=== PATIENT | female | born 1960 | race Asian ===

== ENCOUNTER → 2017-04-18 | Outpatient (CLI) | payer BC ==
[2017-04-18 12:44] LABS: BASOPHILS % 0.2 % (0.0-2.0); HEMATOCRIT. 43.8 % (36.0-48.0); HEMOGLOBIN. 14.4 g/dL (12.0-16.0); LYMPHOCYTES % 9.8 % (20.0-50.0); MEAN CORPUSCULAR HEMOGLOBIN 28.3 pg (28.0-32.0); MEAN CORPUSCULAR VOLUME 86.4 fL (81.0-99.0); MEAN PLATELET VOLUME 8.1 fl (7.4-10.4); MONOCYTES % 3.9 % (2.0-8.0); NEUTROPHILS % 86.1 % (40.0-76.0); PLATELET 347 x1000/uL (130-400); RED BLOOD CELL COUNT 5.07 mill/uL (4.2-5.4); RED CELL DISTRIBUTION WIDTH 13.3 % (11.6-14.6)
[2017-04-18 13:14] LABS: CARBON DIOXIDE 27 mEq/L (21-32); CHLORIDE 105 mEq/L (98-107); HDL CHOLESTEROL 111 mg/dL (40-59); LDL CHOLESTEROL 106 mg/dL (5-100); T4 FREE 1.12 ng/dL (0.76-1.46)
[2017-04-18 13:33] LABS: VITAMIN B12 SERUM 929 pg/mL (211-911)
[2017-04-18 13:36] LABS: FOLIC ACID (FOLATE) SERUM > 20.00 ng/mL (>5.38)
[2017-04-19 10:07] LABS: VITAMIN D 25-OH 32.5 ng/mL (30.0-100.0)
[2017-04-19 19:09] LABS: ANTI-NUCLEAR ANTIBODIES DIRECT Negative (Negative)
== END | disposition home or self-care (01) ==
LOC: LAB 12:05
PROVIDERS: ATTEND Internal Medicine Endocrinology, Diabetes & Metabolism
DX: N60.01 Solitary cyst of right breast (principal); N64.4 Mastodynia; E78.00 Pure hypercholesterolemia, unspecified; R73.9 Hyperglycemia, unspecified; R51 Headache
CPT/HCPCS: 36415; 76641; 80053; 80061; 82306; 82607; 82746; 83036; 83921; 84439; 84443; 85025; 85651; 86038; 86430

== ENCOUNTER → 2017-06-13 | Outpatient (CLI) | payer BC ==
[~2017-06-13] MED LIST: REGADENOSON 0.4 MG/5 ML IV ONE
== END | disposition home or self-care (01) ==
LOC: NM 07:01
PROVIDERS: ATTEND Specialist
DX: R07.89 Other chest pain (principal); R06.02 Shortness of breath
CPT/HCPCS: 78452; 93017; 93306; A9500; J2785

== ENCOUNTER → 2017-06-20 | Outpatient (CLI) | payer BC ==
[2017-06-20 12:53] LABS: CARBON DIOXIDE 30 mEq/L (21-32); CHLORIDE 109 mEq/L (98-107)
[2017-06-21 13:10] LABS: CANCER ANTIGEN 125 5.3 U/mL (0.0-38.1)
== END | disposition home or self-care (01) ==
LOC: LAB 11:32
PROVIDERS: ATTEND Obstetrics & Gynecology Obstetrics
DX: E78.4 Other hyperlipidemia (principal)
CPT/HCPCS: 36415; 80053; 82378; 86304; 86305

== ENCOUNTER → 2017-06-21 | Outpatient (CLI) | payer BC | END | disposition home or self-care (01) | LOC: RAD 15:19 | PROVIDERS: ATTEND Specialist | DX: R07.9 Chest pain, unspecified (principal) | CPT/HCPCS: 71020 ==

== ENCOUNTER → 2017-07-04 | Outpatient (CLI) | payer BC ==
[~2017-07-04] MED LIST changes: +BARIUM SULFATE 450ML ORAL SUSP ONE; +IOHEXOL-300 100 ML BOTTLE ONE; -REGADENOSON 0.4 MG/5 ML IV ONE; +SODIUM CHLORIDE 0.9% 10ML VIAL ONE
== END | disposition home or self-care (01) ==
LOC: CT 07:56
PROVIDERS: ATTEND Obstetrics & Gynecology Obstetrics
DX: I51.7 Cardiomegaly (principal); M43.16 Spondylolisthesis, lumbar region
CPT/HCPCS: 74177; A4216; Q9967

== ENCOUNTER → 2017-07-27 | Outpatient (CLI) | payer BC | END | disposition home or self-care (01) | LOC: US 09:38 | PROVIDERS: ATTEND Obstetrics & Gynecology Obstetrics | DX: N83.292 Other ovarian cyst, left side (principal); D25.9 Leiomyoma of uterus, unspecified; D39.0 Neoplasm of uncertain behavior of uterus | CPT/HCPCS: 76830; 76856 ==

== ENCOUNTER 2017-08-08 05:38 | Day surgery (SDC) | payer BC ==
[~2017-08-08] VITALS: Ht 151.1 cm; Wt 68.0 kg
[2017-08-08 06:27] LABS: BASOPHILS % 1.5 % (0.0-2.0); EOSINOPHILS % 4.3 % (0.0-5.0); HEMATOCRIT. 41.7 % (36.0-48.0); LYMPHOCYTES % 36.8 % (20.0-50.0); MEAN CORPUSCULAR HEMOGLOBIN 29.1 pg (28.0-32.0); NEUTROPHILS % 50.4 % (40.0-76.0); PLATELET 293 x1000/uL (130-400); RED CELL DISTRIBUTION WIDTH 13.7 % (11.6-14.6)
[2017-08-08 06:32] LABS: CLARITY URINE CLEAR (CLEAR); COLOR URINE YELLOW (YELLOW); GLUCOSE URINE NEGATIVE (NEGATIVE); KETONES URINE NEGATIVE (NEGATIVE); LEUKOCYTE ESTERASE URINE NEGATIVE (NEGATIVE); NITRITE URINE NEGATIVE (NEGATIVE); OCCULT BLOOD URINE NEGATIVE (NEGATIVE); PH URINE 6.5 (4.5-8.0); PROTEIN URINE NEGATIVE (NEGATIVE); SPECIFIC GRAVITY URINE 1.009 (1.005-1.030); UROBILINOGEN URINE 0.2 E.U./dL (0.2-1.0)
[2017-08-08 06:38] LABS: CARBON DIOXIDE 29 mEq/L (21-32); CHLORIDE 108 mEq/L (98-107)
[2017-08-08] MEDS ORDERED: LACTATED RINGERS 1,000 ML IV SCH (06:45)
[2017-08-08 06:48] LABS: UCG SCREEN NEGATIVE
[2017-08-08] MEDS ORDERED: ONDANSETRON HCL 4MG/2ML VIAL ONE (07:36)
[2017-08-08] MEDS ORDERED: LIDOCAINE HCL 1% 20ML VIAL (Pyxis) INJ ONE (07:36)
[2017-08-08] MEDS ORDERED: METOCLOPRAMIDE HCL 10MG/2ML VIAL ONE (07:36)
[2017-08-08] MEDS ORDERED: PROPOFOL 200MG/20ML VIAL IV ONE (07:36)
[2017-08-08] MEDS ORDERED: FENTANYL CITRATE/PF 50MCG/ML 2ML VIAL ONE (07:37)
[2017-08-08] MEDS ORDERED: CEFAZOLIN SODIUM 1000MG/VIAL ONE (07:51)
[2017-08-08] MEDS ORDERED: LABETALOL HCL 20MG/4ML CARPUJECT IV PRN (08:00)
[2017-08-08] MEDS ORDERED: ONDANSETRON HCL 4MG/2ML VIAL IV PRN (08:00)
[2017-08-08] MEDS ORDERED: MEPERIDINE HCL/PF 25MG/ML CPJ IV PRN (08:00)
[2017-08-08] MEDS ORDERED: HYDROMORPHONE HCL/PF 2MG/ML CPJ IV PRN (08:00)
[2017-08-08] MEDS ORDERED: ACETAMINOPHEN 325MG TABLET PO PRN (08:30)
== END 2017-08-08 10:15 ==
LOC: OR 05:38
PROVIDERS: ATTEND Obstetrics & Gynecology Obstetrics
DX: N85.8 Other specified noninflammatory disorders of uterus (principal); Z91.013 Allergy to seafood; Z91.09 Other allergy status, other than to drugs and biological substances; Z98.890 Other specified postprocedural states
CPT/HCPCS: 36415; 58558; 80048; 81003; 81025; 85025; 88305; 93005; J0690; J2405; J2765; J3010; J3490; J7120; J2704

== ENCOUNTER → 2017-08-21 | Outpatient (CLI) | payer BC | END | disposition home or self-care (01) | LOC: MRI 07:57 | PROVIDERS: ATTEND Psychiatry & Neurology Neurology | DX: R51 Headache (principal); R26.81 Unsteadiness on feet; Z86.73 Personal history of transient ischemic attack (TIA), and cerebral infarction without residual deficits | CPT/HCPCS: 70544; 70553 ==

== ENCOUNTER → 2017-09-07 | Outpatient (CLI) | payer BC ==
[2017-09-07 09:49] LABS: BASOPHILS % 0.8 % (0.0-2.0); EOSINOPHILS % 5.3 % (0.0-5.0); HEMATOCRIT. 41.8 % (36.0-48.0); HEMOGLOBIN. 14.1 g/dL (12.0-16.0); LYMPHOCYTES % 32.2 % (20.0-50.0); MEAN CORPUSCULAR HEMOGLOBIN 29.2 pg (28.0-32.0); MEAN CORPUSCULAR VOLUME 86.5 fL (81.0-99.0); MEAN PLATELET VOLUME 7.9 fl (7.4-10.4); NEUTROPHILS % 54.7 % (40.0-76.0); PLATELET 289 x1000/uL (130-400); RED BLOOD CELL COUNT 4.84 mill/uL (4.2-5.4); RED CELL DISTRIBUTION WIDTH 13.8 % (11.6-14.6)
[2017-09-07 11:11] LABS: CARBON DIOXIDE 26 mEq/L (21-32); CHLORIDE 108 mEq/L (98-107); HDL CHOLESTEROL 88 mg/dL (40-59); LDL CHOLESTEROL 81 mg/dL (5-100); T4 FREE 1.09 ng/dL (0.76-1.46)
== END | disposition home or self-care (01) ==
LOC: LAB 09:19
PROVIDERS: ATTEND Internal Medicine Endocrinology, Diabetes & Metabolism
DX: E78.00 Pure hypercholesterolemia, unspecified (principal); E55.9 Vitamin D deficiency, unspecified; E05.80 Other thyrotoxicosis without thyrotoxic crisis or storm
CPT/HCPCS: 36415; 80053; 80061; 82306; 83520; 84439; 84443; 84481; 85025

== ENCOUNTER → 2017-12-24 | Outpatient (CLI) | payer BC ==
[2017-12-24 10:26] LABS: BASOPHILS % 1.4 % (0.0-2.0); EOSINOPHILS % 4.2 % (0.0-5.0); HEMATOCRIT. 45.6 % (36.0-48.0); HEMOGLOBIN. 14.8 g/dL (12.0-16.0); LYMPHOCYTES % 27.3 % (20.0-50.0); MEAN CORPUSCULAR HEMOGLOBIN 28.1 pg (28.0-32.0); MEAN CORPUSCULAR VOLUME 86.5 fL (81.0-99.0); MEAN PLATELET VOLUME 8.1 fl (7.4-10.4); MONOCYTES % 6.2 % (2.0-8.0); NEUTROPHILS % 60.9 % (40.0-76.0); PLATELET 357 x1000/uL (130-400); RED BLOOD CELL COUNT 5.27 mill/uL (4.2-5.4); RED CELL DISTRIBUTION WIDTH 13.8 % (11.6-14.6)
[2017-12-24 10:43] LABS: CHLORIDE 103 mEq/L (98-107)
[2017-12-24 10:59] LABS: HDL CHOLESTEROL 97 mg/dL (40-59); LDL CHOLESTEROL 92 mg/dL (5-100); T4 FREE 1.03 ng/dL (0.76-1.46)
== END | disposition home or self-care (01) ==
LOC: LAB 09:44
PROVIDERS: ATTEND Internal Medicine Endocrinology, Diabetes & Metabolism
DX: E78.00 Pure hypercholesterolemia, unspecified (principal); E03.9 Hypothyroidism, unspecified; E55.9 Vitamin D deficiency, unspecified
CPT/HCPCS: 36415; 80053; 80061; 82306; 83036; 84439; 84443; 84481; 85025

== ENCOUNTER → 2018-02-18 | Outpatient (CLI) | payer BC ==
[2018-02-18 10:58] LABS: BASOPHILS % 0.6 % (0.0-2.0); EOSINOPHILS % 3.3 % (0.0-5.0); HEMOGLOBIN. 14.6 g/dL (12.0-16.0); LYMPHOCYTES % 30.9 % (20.0-50.0); MEAN CORPUSCULAR HEMOGLOBIN 29.3 pg (28.0-32.0); MEAN CORPUSCULAR VOLUME 86.7 fL (81.0-99.0); MEAN PLATELET VOLUME 8.4 fl (7.4-10.4); NEUTROPHILS % 59.2 % (40.0-76.0); PLATELET 322 x1000/uL (130-400); RED BLOOD CELL COUNT 4.96 mill/uL (4.2-5.4); RED CELL DISTRIBUTION WIDTH 14.1 % (11.6-14.6)
[2018-02-18 11:06] LABS: CHLORIDE 106 mEq/L (98-107)
[2018-02-18 11:14] LABS: HDL CHOLESTEROL 94 mg/dL (40-59); LDL CHOLESTEROL 84 mg/dL (5-100)
[2018-02-18 11:15] LABS: T4 FREE 1.03 ng/dL (0.76-1.46)
[2018-02-19 09:11] LABS: RF PROFILE < 10.0 IU/mL (0.0-13.9); VITAMIN D 25-OH 34.7 ng/mL (30.0-100.0)
[2018-02-20 09:09] LABS: ANTI-NUCLEAR ANTIBODIES DIRECT Negative (Negative)
[2018-02-21 10:09] LABS: CCP IgG/IgA PROFILE 7 units (0-19); METHYLMALONIC ACID 167 nmol/L (0-378)
== END | disposition home or self-care (01) ==
LOC: LAB 10:11
PROVIDERS: ATTEND Internal Medicine Endocrinology, Diabetes & Metabolism
DX: E05.90 Thyrotoxicosis, unspecified without thyrotoxic crisis or storm (principal); R73.9 Hyperglycemia, unspecified; E78.00 Pure hypercholesterolemia, unspecified; R42 Dizziness and giddiness; E55.9 Vitamin D deficiency, unspecified
CPT/HCPCS: 36415; 80053; 80061; 82306; 83036; 83921; 84439; 84443; 84481; 85025; 85651; 86038; 86200; 86431

== ENCOUNTER → 2018-02-26 | Outpatient (CLI) | payer BC | END | disposition home or self-care (01) | LOC: MAMMO 07:44 | PROVIDERS: ATTEND Internal Medicine Endocrinology, Diabetes & Metabolism | DX: Z12.31 Encounter for screening mammogram for malignant neoplasm of breast (principal) | CPT/HCPCS: 77067 ==

== ENCOUNTER → 2018-07-19 | Outpatient (CLI) | payer BC ==
[2018-07-19 11:28] LABS: BASOPHILS % 0.1 % (0.0-2.0); EOSINOPHILS % 3.2 % (0.0-5.0); HEMATOCRIT. 43.4 % (36.0-48.0); HEMOGLOBIN. 14.7 g/dL (12.0-16.0); LYMPHOCYTES % 30.4 % (20.0-50.0); MEAN CORPUSCULAR HEMOGLOBIN 29.7 pg (28.0-32.0); MEAN CORPUSCULAR VOLUME 87.4 fL (81.0-99.0); MEAN PLATELET VOLUME 8.4 fl (7.4-10.4); MONOCYTES % 6.5 % (2.0-8.0); NEUTROPHILS % 59.8 % (40.0-76.0); PLATELET 283 x1000/uL (130-400); RED BLOOD CELL COUNT 4.96 mill/uL (4.2-5.4); RED CELL DISTRIBUTION WIDTH 13.6 % (11.6-14.6)
[2018-07-19 11:45] LABS: CHLORIDE 106 mEq/L (98-107)
[2018-07-19 11:52] LABS: LDL CHOLESTEROL 81 mg/dL (5-100)
[2018-07-19 11:53] LABS: HDL CHOLESTEROL 88 mg/dL (40-59)
[2018-07-19 11:54] LABS: T4 FREE 0.98 ng/dL (0.76-1.46)
== END | disposition home or self-care (01) ==
LOC: LAB 10:39
PROVIDERS: ATTEND Internal Medicine Endocrinology, Diabetes & Metabolism
DX: E03.9 Hypothyroidism, unspecified (principal); E78.00 Pure hypercholesterolemia, unspecified; E55.9 Vitamin D deficiency, unspecified; R73.9 Hyperglycemia, unspecified
CPT/HCPCS: 36415; 80053; 80061; 82306; 83036; 84439; 84443; 84481; 85025

== ENCOUNTER → 2018-11-11 | Outpatient (CLI) | payer BC ==
[2018-11-11 11:17] LABS: CHLORIDE 107 mEq/L (98-107)
[2018-11-11 11:23] LABS: BASOPHILS % 1.2 % (0.0-2.0); EOSINOPHILS % 2.6 % (0.0-5.0); HEMATOCRIT. 41.5 % (36.0-48.0); HEMOGLOBIN. 13.9 g/dL (12.0-16.0); LYMPHOCYTES % 28.4 % (20.0-50.0); MEAN CORPUSCULAR HEMOGLOBIN 29.3 pg (28.0-32.0); MEAN CORPUSCULAR VOLUME 87.4 fL (81.0-99.0); MEAN PLATELET VOLUME 8.2 fl (7.4-10.4); MONOCYTES % 5.8 % (2.0-8.0); PLATELET 316 x1000/uL (130-400); RED BLOOD CELL COUNT 4.74 mill/uL (4.2-5.4); RED CELL DISTRIBUTION WIDTH 13.5 % (11.6-14.6)
[2018-11-12 06:10] LABS: VITAMIN D 25-OH 24.3 ng/mL (30.0-100.0)
[2018-11-12 13:06] LABS: ANTI-NUCLEAR ANTIBODIES DIRECT Negative (Negative)
== END | disposition home or self-care (01) ==
LOC: LAB 09:49
PROVIDERS: ATTEND Internal Medicine Endocrinology, Diabetes & Metabolism
DX: M17.11 Unilateral primary osteoarthritis, right knee (principal); E55.9 Vitamin D deficiency, unspecified; M19.90 Unspecified osteoarthritis, unspecified site; R73.9 Hyperglycemia, unspecified; R94.6 Abnormal results of thyroid function studies
CPT/HCPCS: 36415; 73560; 82306; 83036; 83615; 84439; 84443; 85651; 86038; 86430

== ENCOUNTER → 2018-11-12 | Outpatient (CLI) | payer BC | END | disposition home or self-care (01) | LOC: US 07:49 | PROVIDERS: ATTEND Internal Medicine Endocrinology, Diabetes & Metabolism | DX: N60.01 Solitary cyst of right breast (principal) | CPT/HCPCS: 76641 ==

== ENCOUNTER → 2019-05-21 | Outpatient (CLI) | payer BC ==
[2019-05-21 09:30] LABS: BASOPHILS % 1.8 % (0.0-2.0); EOSINOPHILS % 5.4 % (0.0-5.0); HEMOGLOBIN. 13.4 g/dL (12.0-16.0); LYMPHOCYTES % 39.9 % (20.0-50.0); MEAN CORPUSCULAR HEMOGLOBIN 29.3 pg (28.0-32.0); MEAN CORPUSCULAR VOLUME 87.8 fL (81.0-99.0); MEAN PLATELET VOLUME 8.2 fl (7.4-10.4); MONOCYTES % 8.1 % (2.0-8.0); NEUTROPHILS % 44.8 % (40.0-76.0); PLATELET 273 x1000/uL (130-400); RED BLOOD CELL COUNT 4.56 mill/uL (4.2-5.4); RED CELL DISTRIBUTION WIDTH 14.1 % (11.6-14.6)
[2019-05-21 09:34] LABS: CHLORIDE 110 mEq/L (98-107)
[2019-05-21 09:41] LABS: LDL CHOLESTEROL 86 mg/dL (5-100)
[2019-05-21 09:42] LABS: HDL CHOLESTEROL 85 mg/dL (40-59)
[2019-05-21 09:43] LABS: T4 FREE 0.94 ng/dL (0.76-1.46)
[2019-05-21 10:10] LABS: FOLIC ACID (FOLATE) SERUM 16.6 ng/mL (>5.38)
[2019-05-22 15:06] LABS: ANTI-NUCLEAR ANTIBODIES DIRECT Negative (Negative)
[2019-05-25 10:09] LABS: METHYLMALONIC ACID 193 nmol/L (0-378)
== END | disposition home or self-care (01) ==
LOC: LAB 08:36
PROVIDERS: ATTEND Internal Medicine Endocrinology, Diabetes & Metabolism
DX: E55.9 Vitamin D deficiency, unspecified (principal); M13.80 Other specified arthritis, unspecified site; R94.6 Abnormal results of thyroid function studies; R73.9 Hyperglycemia, unspecified
CPT/HCPCS: 36415; 80061; 82746; 83036; 83921; 84252; 84439; 84443; 84481; 85651; 86038

== ENCOUNTER → 2019-06-11 | Outpatient (CLI) | payer BC | END | disposition home or self-care (01) | LOC: US 07:49 | PROVIDERS: ATTEND Internal Medicine Endocrinology, Diabetes & Metabolism | DX: D25.9 Leiomyoma of uterus, unspecified (principal); R10.9 Unspecified abdominal pain; R06.02 Shortness of breath | CPT/HCPCS: 71046; 76700; 76830; 76856 ==

== ENCOUNTER → 2019-06-25 | Outpatient (CLI) | payer BC ==
[2019-06-25 09:04] LABS: CLARITY URINE CLEAR (CLEAR); COLOR URINE YELLOW (YELLOW); KETONES URINE NEGATIVE (NEGATIVE); LEUKOCYTE ESTERASE URINE NEGATIVE (NEGATIVE); NITRITE URINE NEGATIVE (NEGATIVE); OCCULT BLOOD URINE NEGATIVE (NEGATIVE); PH URINE 7.5 (4.5-8.0); PROTEIN URINE NEGATIVE (NEGATIVE); SPECIFIC GRAVITY URINE 1.012 (1.005-1.030); UROBILINOGEN URINE 0.2 E.U./dL (0.2-1.0)
== END | disposition home or self-care (01) ==
LOC: LAB 08:45
PROVIDERS: ATTEND Obstetrics & Gynecology Obstetrics
DX: N39.0 Urinary tract infection, site not specified (principal)
CPT/HCPCS: 81003

== ENCOUNTER → 2019-07-09 | Outpatient (CLI) | payer BC | END | disposition home or self-care (01) | LOC: MAMMO 07:14 | PROVIDERS: ATTEND Obstetrics & Gynecology Obstetrics | DX: Z12.31 Encounter for screening mammogram for malignant neoplasm of breast (principal) | CPT/HCPCS: 77067 ==

== ENCOUNTER → 2019-07-30 | Outpatient (CLI) | payer BC ==
[2019-07-30 12:05] LABS: BASOPHILS % 0.2 % (0.0-2.0); EOSINOPHILS % 4.9 % (0.0-5.0); HEMATOCRIT. 43.3 % (36.0-48.0); HEMOGLOBIN. 14.6 g/dL (12.0-16.0); MEAN CORPUSCULAR HEMOGLOBIN 29.5 pg (28.0-32.0); MEAN CORPUSCULAR VOLUME 87.4 fL (81.0-99.0); MEAN PLATELET VOLUME 8.1 fl (7.4-10.4); MONOCYTES % 8.8 % (2.0-8.0); NEUTROPHILS % 49.1 % (40.0-76.0); PLATELET 301 x1000/uL (130-400); RED BLOOD CELL COUNT 4.95 mill/uL (4.2-5.4); RED CELL DISTRIBUTION WIDTH 13.6 % (11.6-14.6)
[2019-07-30 12:14] LABS: CHLORIDE 107 mEq/L (98-107)
[2019-07-30 12:27] LABS: AMYLASE 60 IU/L (25-115)
== END | disposition home or self-care (01) ==
LOC: LAB 11:00
PROVIDERS: ATTEND Internal Medicine Gastroenterology
DX: R10.9 Unspecified abdominal pain (principal)
CPT/HCPCS: 36415; 82150; 83615; 85651

== ENCOUNTER → 2019-08-01 | Outpatient (CLI) | payer BC ==
[~2019-08-01] MED LIST changes: -BARIUM SULFATE 450ML ORAL SUSP ONE; +DIATR MEGLU/DIATRIZOATE SOLN 120ML ONE; -SODIUM CHLORIDE 0.9% 10ML VIAL ONE
== END | disposition home or self-care (01) ==
LOC: CT 08:33
PROVIDERS: ATTEND Internal Medicine Gastroenterology
DX: R10.32 Left lower quadrant pain (principal); Z88.2 Allergy status to sulfonamides; Z88.8 Allergy status to other drugs, medicaments and biological substances
CPT/HCPCS: 74177; Q9963; Q9967; Z7610

== ENCOUNTER → 2019-08-19 | Outpatient (CLI) | payer BC ==
[2019-08-19 12:29] LABS: BASOPHILS % 1.8 % (0.0-2.0); EOSINOPHILS % 4.5 % (0.0-5.0); HEMATOCRIT. 42.1 % (36.0-48.0); HEMOGLOBIN. 14.1 g/dL (12.0-16.0); LYMPHOCYTES % 32.6 % (20.0-50.0); MEAN CORPUSCULAR HEMOGLOBIN 29.3 pg (28.0-32.0); MEAN CORPUSCULAR VOLUME 87.3 fL (81.0-99.0); MEAN PLATELET VOLUME 8.1 fl (7.4-10.4); MONOCYTES % 5.9 % (2.0-8.0); NEUTROPHILS % 55.2 % (40.0-76.0); PLATELET 278 x1000/uL (130-400); RED BLOOD CELL COUNT 4.82 mill/uL (4.2-5.4); RED CELL DISTRIBUTION WIDTH 13.8 % (11.6-14.6)
[2019-08-19 13:25] LABS: CHLORIDE 109 mEq/L (98-107)
[2019-08-19 13:35] LABS: LDL CHOLESTEROL 109 mg/dL (5-100)
[2019-08-19 13:37] LABS: T4 FREE 0.98 ng/dL (0.76-1.46)
[2019-08-19 13:38] LABS: HDL CHOLESTEROL 84 mg/dL (40-59)
[2019-08-19 20:24] LABS: VITAMIN B12 SERUM 272 pg/mL (211-911)
== END | disposition home or self-care (01) ==
LOC: CARD 10:04
PROVIDERS: ATTEND Specialist
DX: E78.2 Mixed hyperlipidemia (principal); E53.9 Vitamin B deficiency, unspecified; E55.9 Vitamin D deficiency, unspecified; I11.9 Hypertensive heart disease without heart failure; R53.83 Other fatigue; R06.02 Shortness of breath
CPT/HCPCS: 36415; 80061; 82306; 82607; 84439; 84443; 84481; 93350

== ENCOUNTER → 2021-03-03 | Outpatient (CLI) | payer BC ==
[2021-03-03 13:13] LABS: BASOPHILS % 0.2 % (0.0-2.0); HEMOGLOBIN. 13.1 g/dL (12.0-16.0); LYMPHOCYTES % 32.8 % (20.0-50.0); MEAN CORPUSCULAR HEMOGLOBIN 29.6 pg (28.0-32.0); MEAN CORPUSCULAR VOLUME 88.2 fL (81.0-99.0); MEAN PLATELET VOLUME 8.2 fl (7.4-10.4); MONOCYTES % 8.3 % (2.0-8.0); NEUTROPHILS % 53.7 % (40.0-76.0); PLATELET 279 x1000/uL (130-400); RED BLOOD CELL COUNT 4.42 mill/uL (4.2-5.4); RED CELL DISTRIBUTION WIDTH 13.2 % (11.6-14.6)
[2021-03-03 13:19] LABS: CHLORIDE 110 mEq/L (98-107)
[2021-03-03 13:27] LABS: LDL CHOLESTEROL 84 mg/dL (5-100)
[2021-03-03 13:28] LABS: HDL CHOLESTEROL 92 mg/dL (40-59)
[2021-03-03 13:29] LABS: T4 FREE 1.17 ng/dL (0.76-1.46)
[2021-03-03 14:38] LABS: FOLIC ACID (FOLATE) SERUM >20 ng/mL ng/mL (>5.38)
[2021-03-03 14:50] LABS: VITAMIN B12 SERUM 584 pg/mL (211-911)
[2021-03-03 14:58] LABS: CORTISOL 4.7 ucg/dL
[2021-03-04 09:06] LABS: ANTI-NUCLEAR ANTIBODIES DIRECT Negative (Negative); RF PROFILE < 10.0 IU/mL (0.0-13.9); VITAMIN D 25-OH 17.9 ng/mL (30.0-100.0)
[2021-03-07 10:08] LABS: ALDOSTERONE 3.3 ng/dL (0.0-30.0)
[2021-03-08 09:06] LABS: CCP IgG/IgA PROFILE 6 units (0-19)
== END | disposition home or self-care (01) ==
LOC: RAD 12:25
PROVIDERS: ATTEND Internal Medicine Endocrinology, Diabetes & Metabolism
DX: R07.9 Chest pain, unspecified (principal)
CPT/HCPCS: 36415; 71045; 80053; 80061; 82088; 82306; 82533; 82607; 82746; 83036; 83921; 84439; 84443; 84481; 85025; 86038; 86200; 86340; 86431

== ENCOUNTER → 2021-03-08 | Outpatient (CLI) | payer BC | END | disposition home or self-care (01) | LOC: MAMMO 10:22 | PROVIDERS: ATTEND Internal Medicine Endocrinology, Diabetes & Metabolism | DX: R92.1 Mammographic calcification found on diagnostic imaging of breast (principal); N64.4 Mastodynia | CPT/HCPCS: 77066 ==

== ENCOUNTER → 2021-04-18 | Outpatient (CLI) | payer BC ==
[2021-04-18 10:57] LABS: C REACTIVE PROTEIN CARDIAC 0.76 mg/L (0.00-3.00)
== END | disposition home or self-care (01) ==
LOC: LAB 09:25
PROVIDERS: ATTEND Internal Medicine Endocrinology, Diabetes & Metabolism
DX: E27.40 Unspecified adrenocortical insufficiency (principal); M79.10 Myalgia, unspecified site
CPT/HCPCS: 36415; 82024; 82088; 82533; 82550; 85651; 86141

== ENCOUNTER → 2021-06-17 | Outpatient (CLI) | payer BC | END | disposition home or self-care (01) | LOC: RAD 10:37 | PROVIDERS: ATTEND Internal Medicine Endocrinology, Diabetes & Metabolism | DX: M47.814 Spondylosis without myelopathy or radiculopathy, thoracic region (principal); M47.818 Spondylosis without myelopathy or radiculopathy, sacral and sacrococcygeal region; M48.04 Spinal stenosis, thoracic region; M48.08 Spinal stenosis, sacral and sacrococcygeal region; M54.9 Dorsalgia, unspecified | CPT/HCPCS: 72070; 72100 ==

== ENCOUNTER → 2021-08-19 | Outpatient (CLI) | payer BC ==
[2021-08-19 11:41] LABS: BASOPHILS % 1.9 % (0.0-2.0); EOSINOPHILS % 4.3 % (0.0-5.0); HEMATOCRIT. 43.4 % (36.0-48.0); HEMOGLOBIN. 14.6 g/dL (12.0-16.0); LYMPHOCYTES % 37.3 % (20.0-50.0); MEAN CORPUSCULAR HEMOGLOBIN 29.3 pg (28.0-32.0); MEAN CORPUSCULAR VOLUME 87.2 fL (81.0-99.0); MEAN PLATELET VOLUME 7.9 fl (7.4-10.4); MONOCYTES % 6.3 % (2.0-8.0); NEUTROPHILS % 50.2 % (40.0-76.0); PLATELET 296 x1000/uL (130-400); RED BLOOD CELL COUNT 4.97 mill/uL (4.2-5.4); RED CELL DISTRIBUTION WIDTH 13.7 % (11.6-14.6)
[2021-08-19 11:48] LABS: CHLORIDE 108 mEq/L (98-107)
[2021-08-19 11:55] LABS: LDL CHOLESTEROL 103 mg/dL (5-100)
[2021-08-19 11:57] LABS: HDL CHOLESTEROL 93 mg/dL (40-59); T4 FREE 1.01 ng/dL (0.76-1.46)
== END | disposition home or self-care (01) ==
LOC: LAB 11:12
PROVIDERS: ATTEND Internal Medicine Endocrinology, Diabetes & Metabolism
DX: E78.00 Pure hypercholesterolemia, unspecified (principal); E55.9 Vitamin D deficiency, unspecified; R73.9 Hyperglycemia, unspecified; R94.6 Abnormal results of thyroid function studies; M19.90 Unspecified osteoarthritis, unspecified site
CPT/HCPCS: 36415; 80053; 80061; 82306; 83036; 84439; 84443; 84481; 85025; 85651

== ENCOUNTER → 2021-09-13 | Outpatient (CLI) | payer BC ==
[2021-09-13 10:57] LABS: BASOPHILS % 0.2 % (0.0-2.0); EOSINOPHILS % 4.1 % (0.0-5.0); HEMATOCRIT. 42.8 % (36.0-48.0); LYMPHOCYTES % 28.3 % (20.0-50.0); MEAN CORPUSCULAR HEMOGLOBIN 28.5 pg (28.0-32.0); MEAN CORPUSCULAR VOLUME 87.3 fL (81.0-99.0); NEUTROPHILS % 61.4 % (40.0-76.0); PLATELET 303 x1000/uL (130-400); RED CELL DISTRIBUTION WIDTH 13.7 % (11.6-14.6)
[2021-09-13 11:07] LABS: CHLORIDE 108 mEq/L (98-107)
[2021-09-13 11:15] LABS: LDL CHOLESTEROL 92 mg/dL (5-100)
[2021-09-13 11:16] LABS: HDL CHOLESTEROL 88 mg/dL (40-59)
== END | disposition home or self-care (01) ==
LOC: LAB CL OP 10:32
PROVIDERS: ATTEND Specialist
DX: R07.89 Other chest pain (principal); R42 Dizziness and giddiness; R06.02 Shortness of breath
CPT/HCPCS: 36415; 80053; 80061; 84439; 84443; 84480; 85025

== ENCOUNTER → 2021-11-10 | Outpatient (CLI) | payer BC ==
[2021-11-10 11:13] LABS: CHLORIDE 110 mEq/L (98-107)
== END | disposition home or self-care (01) ==
LOC: LAB 10:47
PROVIDERS: ATTEND Specialist
DX: I11.9 Hypertensive heart disease without heart failure (principal); E78.2 Mixed hyperlipidemia; R94.31 Abnormal electrocardiogram [ECG] [EKG]; R06.02 Shortness of breath; R42 Dizziness and giddiness; R07.9 Chest pain, unspecified
CPT/HCPCS: 36415; 80053

== ENCOUNTER → 2021-11-30 | Outpatient (CLI) | payer BC ==
[~2021-11-30] MED LIST changes: -DIATR MEGLU/DIATRIZOATE SOLN 120ML ONE; -IOHEXOL-300 100 ML BOTTLE ONE; +IOHEXOL-350 100 ML BOTTLE ONE; +NITROGLYCERIN SPRAY/4.9GM CAN TL NR
== END | disposition home or self-care (01) ==
LOC: CT 08:28
PROVIDERS: ATTEND Specialist
DX: R42 Dizziness and giddiness (principal); R06.02 Shortness of breath; R07.9 Chest pain, unspecified
CPT/HCPCS: 75571; Q9967; Z7610

== ENCOUNTER → 2021-12-22 | Outpatient (CLI) | payer BC ==
[2021-12-22 11:29] LABS: BASOPHILS % 1.4 % (0.0-2.0); EOSINOPHILS % 4.4 % (0.0-5.0); HEMATOCRIT. 43.7 % (36.0-48.0); HEMOGLOBIN. 14.3 g/dL (12.0-16.0); LYMPHOCYTES % 36.7 % (20.0-50.0); MEAN CORPUSCULAR HEMOGLOBIN 28.2 pg (28.0-32.0); MEAN CORPUSCULAR VOLUME 86.1 fL (81.0-99.0); MEAN PLATELET VOLUME 7.5 fl (7.4-10.4); MONOCYTES % 6.5 % (2.0-8.0); PLATELET 329 x1000/uL (130-400); RED BLOOD CELL COUNT 5.08 mill/uL (4.2-5.4); RED CELL DISTRIBUTION WIDTH 14.1 % (11.6-14.6)
[2021-12-22 11:40] LABS: CHLORIDE 109 mEq/L (98-107)
== END | disposition home or self-care (01) ==
LOC: LAB 11:08
PROVIDERS: ATTEND Specialist
DX: I11.9 Hypertensive heart disease without heart failure (principal); E78.2 Mixed hyperlipidemia; R94.31 Abnormal electrocardiogram [ECG] [EKG]
CPT/HCPCS: 36415; 80053; 85025

== ENCOUNTER → 2021-12-26 | Outpatient (CLI) | payer BC ==
[~2021-12-26] MED LIST changes: +B12/1TAB PO; -IOHEXOL-350 100 ML BOTTLE ONE; +METO25TA6 MT; -NITROGLYCERIN SPRAY/4.9GM CAN TL NR
== END | disposition home or self-care (01) ==
LOC: LAB 09:38
PROVIDERS: ATTEND Specialist
DX: R06.02 Shortness of breath (principal); R07.9 Chest pain, unspecified; Z20.822 Contact with and (suspected) exposure to COVID-19
CPT/HCPCS: 87426

== ENCOUNTER → 2021-12-27 | Day surgery (SDC) | payer BC ==
[~2021-12-27] VITALS: Ht 152.4 cm; Wt 71.7 kg
[~2021-12-27] MED LIST changes: +ACETAMINOPHEN 325MG TABLET PO PRN; +ASPIRIN/SOD BICARB/CITRIC ACID 324MG TAB EFF ONE; +ATROPINE SULFATE 1MG/10ML SYR IV PRN; +DIPHENHYDRAMINE 50MG/ML VIAL ONE; +FAMOTIDINE 20MG/2ML VIAL IV ONE; +FENTANYL CITRATE/PF 50MCG/ML 2ML VIAL ONE; +HEPARIN SODIUM 1,000 UNIT/1ML VIAL IV ONE; +HYDROCORTISONE SOD SUCCINATE 250 MG/2 ML VIAL ONE; +IODIXANOL 320MG/ML 100 ML BOTTLE IV ONE; +LIDOCAINE HCL 1% 20ML VIAL (Pyxis) INJ ONE; +MIDAZOLAM HCL 2 MG/2 ML VIAL ONE; +MORPHINE SULFATE 2 MG/ML CPJ (NOT FOR IM USE) IV PRN; +NICARDIPINE 100MCG/ML 10ML VIAL (CATH LAB) IV ONE; +NITROGLYCERIN 50MCG/ML 10ML VIAL (CATH LAB) IV ONE; +ONDANSETRON HCL 4MG/2ML INJ IV PRN
== END | disposition home or self-care (01) ==
LOC: CCL 06:19
PROVIDERS: ATTEND Specialist
DX: I25.10 Atherosclerotic heart disease of native coronary artery without angina pectoris (principal); I11.9 Hypertensive heart disease without heart failure; E78.2 Mixed hyperlipidemia; E66.3 Overweight; Z79.899 Other long term (current) drug therapy; Z91.013 Allergy to seafood
CPT/HCPCS: 93458; 99152; C1769; C1893; J1200; J1644; J1720; J2250; J3010; J3490; J7040; Q9967; G0500

== ENCOUNTER → 2022-01-06 | Outpatient (CLI) | payer BC ==
[~2022-01-06] MED LIST changes: -ACETAMINOPHEN 325MG TABLET PO PRN; +ALBUTEROL (0.083%) 2.5MG/3ML NEB ONE; +ASCO-339 PO; -ASPIRIN/SOD BICARB/CITRIC ACID 324MG TAB EFF ONE; -ATROPINE SULFATE 1MG/10ML SYR IV PRN; -DIPHENHYDRAMINE 50MG/ML VIAL ONE; -FAMOTIDINE 20MG/2ML VIAL IV ONE; -FENTANYL CITRATE/PF 50MCG/ML 2ML VIAL ONE; +FERR325T6 MT; -HEPARIN SODIUM 1,000 UNIT/1ML VIAL IV ONE; -HYDROCORTISONE SOD SUCCINATE 250 MG/2 ML VIAL ONE; +IBUP-1653 MT; -IODIXANOL 320MG/ML 100 ML BOTTLE IV ONE; -LIDOCAINE HCL 1% 20ML VIAL (Pyxis) INJ ONE; -MIDAZOLAM HCL 2 MG/2 ML VIAL ONE; -MORPHINE SULFATE 2 MG/ML CPJ (NOT FOR IM USE) IV PRN; -NICARDIPINE 100MCG/ML 10ML VIAL (CATH LAB) IV ONE; -NITROGLYCERIN 50MCG/ML 10ML VIAL (CATH LAB) IV ONE; -ONDANSETRON HCL 4MG/2ML INJ IV PRN
[2022-01-06 10:38] LABS: CLARITY URINE CLEAR (CLEAR); COLOR URINE YELLOW (YELLOW); KETONES URINE NEGATIVE (NEGATIVE); LEUKOCYTE ESTERASE URINE NEGATIVE (NEGATIVE); NITRITE URINE NEGATIVE (NEGATIVE); OCCULT BLOOD URINE NEGATIVE (NEGATIVE); PROTEIN URINE NEGATIVE (NEGATIVE); SPECIFIC GRAVITY URINE 1.008 (1.005-1.030); UROBILINOGEN URINE 0.2 E.U./dL (0.2-1.0)
[2022-01-06 10:57] LABS: BASOPHILS % 1.2 % (0.0-2.0); EOSINOPHILS % 4.8 % (0.0-5.0); HEMATOCRIT. 41.2 % (36.0-48.0); HEMOGLOBIN. 13.7 g/dL (12.0-16.0); LYMPHOCYTES % 30.4 % (20.0-50.0); MEAN CORPUSCULAR HEMOGLOBIN 28.9 pg (28.0-32.0); MEAN CORPUSCULAR VOLUME 86.6 fL (81.0-99.0); MONOCYTES % 6.7 % (2.0-8.0); NEUTROPHILS % 56.9 % (40.0-76.0); PLATELET 324 x1000/uL (130-400); RED BLOOD CELL COUNT 4.76 mill/uL (4.2-5.4); RED CELL DISTRIBUTION WIDTH 13.7 % (11.6-14.6)
[2022-01-06 11:03] LABS: CHLORIDE 107 mEq/L (98-107)
[2022-01-06 11:06] LABS: PARTIAL THROMBOPLASTIN TIME 30.3 sec (23.4-31.0); PROTHROMBIN TIME 10.9 sec (9.6-11.0)
== END | disposition home or self-care (01) ==
LOC: PF 09:59
PROVIDERS: ATTEND Thoracic Surgery (Cardiothoracic Vascular Surgery)
DX: Z01.818 Encounter for other preprocedural examination (principal); I51.7 Cardiomegaly; I25.10 Atherosclerotic heart disease of native coronary artery without angina pectoris; Q24.5 Malformation of coronary vessels
CPT/HCPCS: 36415; 71045; 80053; 81003; 83036; 83735; 84443; 85025; 86850; 86900; 87426; 93005; 93880; 94060

== ENCOUNTER 2022-01-10 09:30 | Inpatient (IN) | payer BC ==
[~2022-01-10] VITALS: Ht 152.4 cm; Wt 70.5 kg
[2022-01-10] VITALS (49 sets, daily range): BP systolic 109–173; BP diastolic -22–96
[~2022-01-10 09:30] MED LIST changes: +ALBUMIN HUMAN 25GM/100ML (25%) IV ONE; -ALBUTEROL (0.083%) 2.5MG/3ML NEB ONE; -ASCO-339 PO; -FERR325T6 MT; +HEPARIN 10,000 UNITS/ML VIAL ONE; -IBUP-1653 MT; +MAGNESIUM SULFATE 5GM/10ML VIAL IV ONE; +POTASSIUM CHLORIDE 40MEQ/20ML INJ IV ONE
[2022-01-10] MEDS ORDERED: POLYMYXIN B SULFATE 500000 UNITS/VIAL ONE (10:15)
[2022-01-10] MEDS ORDERED: SODIUM CHLORIDE 0.9% IRRIG SOL 8,000 ML IR ONE (10:15)
[2022-01-10] MEDS ORDERED: SODIUM CHLORIDE 0.9% INJ 10ML FLUSH IVF ONE (10:15)
[2022-01-10] MEDS ORDERED: THROMBIN (BOVINE) 5000 UNITS/VIAL TOP ONE (10:15)
[2022-01-10] MEDS ORDERED: SKIN ADHESIVE 0.7 GM EA TOP ONE ×2 (10:17→10:18)
[2022-01-10] MEDS ORDERED: BACITRACIN 15GM TUBE TOP ONE (10:18)
[2022-01-10] MEDS ORDERED: HEPARIN 1000 UNITS/ML 10ML ONE ×2 (10:27→14:18)
[2022-01-10] MEDS ORDERED: DOPAMINE HCL 400 MG in DEXT 5% WATER 245 ML IV PRN (10:30)
[2022-01-10] MEDS ORDERED: INSULIN REGULAR 100U/100ML PMX 100 ML IV SCH (12:00)
[2022-01-10] MEDS ORDERED: EPINEPHRINE 5 MG in DEXT 5% WATER 245 ML IV SCH (12:00)
[2022-01-10] MEDS ORDERED: PAPAVERINE HCL 180MG in SODIUM CHLORIDE 0.9% 24ML IV SCH (12:00)
[2022-01-10] MEDS ORDERED: CEFAZOLIN 2,000 MG in DEXT 5% WATER 100 ML IV SCH (12:00)
[2022-01-10] MEDS ORDERED: DOBUTAMINE 250 MG in DEXT 5% WATER 230 ML IV SCH (12:00)
[2022-01-10] MEDS ORDERED: DEL NIDO ELECTROLYTE-S(PH 7.4) 1,000 ML IV SCH ×2 (12:00)
[2022-01-10] MEDS ORDERED: AMINOCAPROIC ACID 5,000 MG in SODIUM CHLORIDE 0.9% 230 ML IV SCH (12:00)
[2022-01-10] MEDS ORDERED: NICARDIPINE 50 MG in NS 230 ML IV SCH (12:00)
[2022-01-10] MEDS ORDERED: INSULIN REGULAR (DRIP) 100 UNITS in SODIUM CHLORIDE 0.9% 99 ML IV SCH (12:00)
[2022-01-10] MEDS ORDERED: NOREPINEPHRINE 8 MG in DEXT 5% WATER 242 ML IV SCH (12:00)
[2022-01-10] MEDS ORDERED: IBUP-1653 MT (12:12)
[2022-01-10] MEDS ORDERED: FERR325T6 MT (12:13)
[2022-01-10] MEDS ORDERED: ASCO-339 PO (12:13)
[2022-01-10] MEDS ORDERED: DEXAMETHASONE 4MG/ML 1ML VIAL ONE (13:04)
[2022-01-10] MEDS ORDERED: FENTANYL CITRATE/PF 50MCG/ML 2ML VIAL ONE (13:48)
[2022-01-10] MEDS ORDERED: FUROSEMIDE 100MG/10ML VIAL ONE (13:49)
[2022-01-10] MEDS ORDERED: ROCURONIUM BROMIDE 10MG/ML VIAL 5ML IV ONE (13:49)
[2022-01-10] MEDS ORDERED: CALCIUM CHLORIDE 1GM/10ML SYR IV ONE (13:53)
[2022-01-10] MEDS ORDERED: DEXMEDETOMIDINE 400 MCG/100 ML 100 ML IV ONE (14:30)
[2022-01-10] MEDS ORDERED: SODIUM BICARBONATE 8.4% 1 MEQ/ML 50ML SYR IV ONE (14:33)
[2022-01-10] MEDS ORDERED: KCL 10MEQ/50ML PREMIX 200 ML IV PRN (14:45)
[2022-01-10] MEDS ORDERED: KCL 10MEQ/50ML PREMIX 100 ML IV PRN (14:45)
[2022-01-10] MEDS ORDERED: MAGNESIUM 2 G PREMIX 50 ML IV PRN ×2 (14:45→15:30)
[2022-01-10] MEDS ORDERED: KCL 10MEQ/50ML PREMIX 150 ML IV PRN (14:45)
[2022-01-10] MEDS ORDERED: MAGNESIUM 1 G PREMIX 100 ML IV PRN ×2 (14:45→15:30)
[2022-01-10] MEDS ORDERED: MAGNESIUM SULFATE 3 GM in DEXT 5% WATER 100 ML IV PRN ×2 (14:45→15:30)
[2022-01-10] MEDS ORDERED: PROTAMINE SULFATE 10MG/ML VIAL 25ML IV ONE (14:46)
[2022-01-10] MEDS ORDERED: KETOROLAC 30MG/ML VIAL ONE (15:05)
[2022-01-10] MEDS ORDERED: CALCIUM CHLORIDE 3,000 MG in DEXT 5% WATER 250 ML IV PRN (15:30)
[2022-01-10] MEDS: MAGNESIUM HYDROXIDE 400MG/5ML 30ML UDC PO SCH ×2 (15:30→23:52)
[2022-01-10] MEDS ORDERED: ONDANSETRON HCL 4MG/2ML INJ IV PRN (15:30)
[2022-01-10] MEDS ORDERED: ALBUMIN HUMAN 25GM/100ML (25%) IV PRN (15:30)
[2022-01-10] MEDS ORDERED: CALCIUM CHLORIDE 5,000 MG in DEXT 5% WATER 500 ML IV PRN (15:30)
[2022-01-10] MEDS ORDERED: SODIUM CHLORIDE 0.9% 500 ML IV PRN (15:30)
[2022-01-10] MEDS ORDERED: DOPAMINE HCL 400 MG in DEXT 5% WATER 250 ML IV SCH (15:30)
[2022-01-10] MEDS ORDERED: ALBUMIN HUMAN 12.5G/250ML (5%) IV PRN (15:30)
[2022-01-10] MEDS ORDERED: ACETAMINOPHEN WITH CODEINE 300/30MG TABLET PO PRN (15:30)
[2022-01-10] MEDS ORDERED: ACETAMINOPHEN 650MG SUPP PR PRN (15:30)
[2022-01-10 15:45] LABS: BG BASE EXCESS -0.1 mmol/L (-2.0-2.0); BG CARBOXYHEMOGLOBIN 0.6 % (0.5-1.5); BG DEOXYHEMOGLOBIN 9.2 % (0.0-5.0); BG FRACTION INSPIRED OXYGEN 60; BG HCO3 ACT 25.7 mmol/L (22.0-26.0); BG METHEMOGLOBIN 0.2 % (0.0-1.5); BG OXYGEN SATURATION 90.7 % (92.0-98.5); BG PCO2 46.2 mmHg (35.0-45.0); BG PH 7.363 (7.350-7.450); BG PO2 61.4 mmHg (75.0-100.0); BG SAMPLE SITE ALINE; BG TOTAL HEMOGLOBIN 13.5 g/dL (12.0-18.0); BG VENT MODE MASK - SIMPLE
[2022-01-10] MEDS ORDERED: NALOXONE HCL 0.4MG/ML VIAL IV PRN (15:45)
[2022-01-10] MEDS ORDERED: MAGNESIUM/ALUMINUM HYDROXIDE/SIMETHICONE 30ML UDC NG SCH (16:00)
[2022-01-10 16:10] LABS: BASOPHILS % 0.5 % (0.0-2.0); EOSINOPHILS % 1.2 % (0.0-5.0); HEMATOCRIT. 37.3 % (36.0-48.0); HEMOGLOBIN. 12.6 g/dL (12.0-16.0); LYMPHOCYTES % 15.4 % (20.0-50.0); MEAN CORPUSCULAR HEMOGLOBIN 28.9 pg (28.0-32.0); MEAN CORPUSCULAR VOLUME 85.6 fL (81.0-99.0); MEAN PLATELET VOLUME 8.3 fl (7.4-10.4); MONOCYTES % 1.1 % (2.0-8.0); NEUTROPHILS % 81.8 % (40.0-76.0); PLATELET 296 x1000/uL (130-400); RED BLOOD CELL COUNT 4.36 mill/uL (4.2-5.4); RED CELL DISTRIBUTION WIDTH 14.1 % (11.6-14.6)
[2022-01-10 16:17] LABS: CHLORIDE 111 mEq/L (98-107)
[2022-01-10 16:23] LABS: PHOSPHORUS 2.7 mg/dL (2.5-4.9)
[2022-01-10] MEDS: BACITRACIN 15GM TUBE TOP SCH (17:00)
[2022-01-10] MEDS: DOCUSATE SODIUM 100MG CAPSULE PO SCH (17:00)
[2022-01-10] MEDS: BLOOD SUGAR DIAGNOSTIC STRIP TEST SCH ×7 (17:51→23:43)
[2022-01-10] MEDS: CEFAZOLIN 1000MG PREMIX 50 ML IV SCH (18:18)
[2022-01-10] MEDS: OXYCODONE HCL/ACETAMINOPHEN 5/325MG TABLET PO PRN (18:19)
[2022-01-10 21:15] LABS: HEMATOCRIT. 34.7 % (36.0-48.0); HEMOGLOBIN. 11.8 g/dL (12.0-16.0); MEAN CORPUSCULAR HEMOGLOBIN 29.4 pg (28.0-32.0); MEAN PLATELET VOLUME 7.8 fl (7.4-10.4); PLATELET 263 x1000/uL (130-400); RED BLOOD CELL COUNT 4.03 mill/uL (4.2-5.4); RED CELL DISTRIBUTION WIDTH 13.9 % (11.6-14.6)
[2022-01-10 22:00] LABS: CHLORIDE 110 mEq/L (98-107)
[2022-01-10 22:06] LABS: PHOSPHORUS 2.1 mg/dL (2.5-4.9)
[2022-01-10 23:29] LABS: PLATELET ESTIMATE NORMAL
[2022-01-10] MEDS: ACETAMINOPHEN 325MG TABLET PO PRN (23:49)
[2022-01-11] VITALS (96 sets, daily range): BP systolic 88–149; BP diastolic 16–85
[2022-01-11] MEDS: BLOOD SUGAR DIAGNOSTIC STRIP TEST SCH ×14 (00:26→21:00)
[2022-01-11] MEDS: KETOROLAC 30MG/ML VIAL IV PRN ×2 (01:02→13:23)
[2022-01-11] MEDS: CEFAZOLIN 1000MG PREMIX 50 ML IV SCH ×3 (01:24→18:29)
[2022-01-11] MEDS: MAGNESIUM HYDROXIDE 400MG/5ML 30ML UDC PO SCH ×2 (03:24→06:54)
[2022-01-11 04:31] LABS: HEMATOCRIT. 34.6 % (36.0-48.0); HEMOGLOBIN. 11.4 g/dL (12.0-16.0); MEAN CORPUSCULAR HEMOGLOBIN 28.3 pg (28.0-32.0); MEAN CORPUSCULAR VOLUME 85.9 fL (81.0-99.0); MEAN PLATELET VOLUME 8.2 fl (7.4-10.4); PLATELET 272 x1000/uL (130-400); RED BLOOD CELL COUNT 4.03 mill/uL (4.2-5.4); RED CELL DISTRIBUTION WIDTH 13.6 % (11.6-14.6)
[2022-01-11 04:50] LABS: CHLORIDE 106 mEq/L (98-107)
[2022-01-11 04:55] LABS: PHOSPHORUS 2.3 mg/dL (2.5-4.9)
[2022-01-11] MEDS: ACETAMINOPHEN 325MG TABLET PO PRN (05:25)
[2022-01-11 05:55] LABS: PLATELET ESTIMATE NORMAL
[2022-01-11] MEDS ORDERED: DEXTROSE 50% WATER 50ML SYRINGE IV PRN ×3 (06:15→10:45)
[2022-01-11] MEDS ORDERED: INSULIN REGULAR (DRIP) 100 UNITS in SODIUM CHLORIDE 0.9% 100 ML IV SCH (06:15)
[2022-01-11] MEDS ORDERED: BLOOD SUGAR DIAGNOSTIC STRIP TEST SCH (06:15)
[2022-01-11] MEDS ORDERED: INSULIN REGULAR 100U/100ML PMX 100 ML IV SCH (07:15)
[2022-01-11] MEDS ORDERED: ALBUMIN HUMAN 25GM/100ML (25%) IV NR (08:15)
[2022-01-11] MEDS: BACITRACIN 15GM TUBE TOP SCH ×2 (09:00→17:00)
[2022-01-11] MEDS: DOCUSATE SODIUM 100MG CAPSULE PO SCH ×2 (09:00→17:00)
[2022-01-11] MEDS: FAMOTIDINE 20MG/2ML VIAL IV SCH (09:48)
[2022-01-11] MEDS: CLOPIDOGREL 75MG TABLET PO SCH (09:48)
[2022-01-11 10:38] LABS: CHLORIDE 106 mEq/L (98-107)
[2022-01-11] MEDS ORDERED: SODIUM CHLORIDE 0.9% 1,000 ML IV ONE (13:30)
[2022-01-11] MEDS: MORPHINE SULFATE 2 MG/ML CPJ (NOT FOR IM USE) IV PRN ×2 (16:15→23:56)
[2022-01-12] VITALS (15 sets, daily range): BP systolic 93–135; BP diastolic 54–81
[2022-01-12] MEDS: IPRATROPIUM/ALBUTEROL 0.5-3(2.5)MG/3ML NEB HHN SCH (00:40)
[2022-01-12] MEDS: ACETAMINOPHEN 325MG TABLET PO PRN (05:25)
[2022-01-12] MEDS: OXYCODONE HCL/ACETAMINOPHEN 5/325MG TABLET PO PRN ×3 (05:25→18:02)
[2022-01-12] MEDS: BLOOD SUGAR DIAGNOSTIC STRIP TEST SCH ×4 (07:30→22:10)
[2022-01-12] MEDS: BACITRACIN 15GM TUBE TOP SCH ×2 (09:00→17:05)
[2022-01-12] MEDS: MORPHINE SULFATE 2 MG/ML CPJ (NOT FOR IM USE) IV PRN (09:14)
[2022-01-12] MEDS: CLOPIDOGREL 75MG TABLET PO SCH (09:14)
[2022-01-12] MEDS: DOCUSATE SODIUM 100MG CAPSULE PO SCH ×2 (09:14→16:45)
[2022-01-12] MEDS: FAMOTIDINE 20MG/2ML VIAL IV SCH (09:14)
[2022-01-12 11:04] LABS: BASOPHILS % 0.5 % (0.0-2.0); EOSINOPHILS % 1.2 % (0.0-5.0); HEMATOCRIT. 32.1 % (36.0-48.0); HEMOGLOBIN. 10.9 g/dL (12.0-16.0); LYMPHOCYTES % 12.1 % (20.0-50.0); MEAN CORPUSCULAR HEMOGLOBIN 29.2 pg (28.0-32.0); MEAN CORPUSCULAR VOLUME 86.3 fL (81.0-99.0); MEAN PLATELET VOLUME 8.4 fl (7.4-10.4); MONOCYTES % 7.9 % (2.0-8.0); NEUTROPHILS % 78.3 % (40.0-76.0); PLATELET 247 x1000/uL (130-400); RED BLOOD CELL COUNT 3.72 mill/uL (4.2-5.4); RED CELL DISTRIBUTION WIDTH 13.5 % (11.6-14.6)
[2022-01-12 11:23] LABS: CHLORIDE 106 mEq/L (98-107)
[2022-01-12 11:30] LABS: PHOSPHORUS 3.6 mg/dL (2.5-4.9)
[2022-01-12] MEDS ORDERED: FUROSEMIDE 40MG/4ML VIAL IVP NR (13:15)
[2022-01-12] MEDS: FUROSEMIDE 40MG TABLET PO SCH (17:03)
[2022-01-13] VITALS (10 sets, daily range): BP systolic 99–128; BP diastolic 59–96
[2022-01-13] MEDS: BLOOD SUGAR DIAGNOSTIC STRIP TEST SCH ×4 (05:51→20:59)
[2022-01-13] MEDS: DOCUSATE SODIUM 100MG CAPSULE PO SCH ×2 (07:30→17:52)
[2022-01-13 07:39] LABS: BASOPHILS % 0.6 % (0.0-2.0); EOSINOPHILS % 2.7 % (0.0-5.0); HEMATOCRIT. 35.7 % (36.0-48.0); HEMOGLOBIN. 12.1 g/dL (12.0-16.0); LYMPHOCYTES % 14.8 % (20.0-50.0); MEAN CORPUSCULAR VOLUME 85.7 fL (81.0-99.0); MEAN PLATELET VOLUME 8.6 fl (7.4-10.4); MONOCYTES % 8.9 % (2.0-8.0); PLATELET 250 x1000/uL (130-400); RED BLOOD CELL COUNT 4.17 mill/uL (4.2-5.4); RED CELL DISTRIBUTION WIDTH 13.5 % (11.6-14.6)
[2022-01-13 07:42] LABS: CHLORIDE 104 mEq/L (98-107)
[2022-01-13 07:48] LABS: PHOSPHORUS 3.3 mg/dL (2.5-4.9)
[2022-01-13] MEDS: IPRATROPIUM/ALBUTEROL 0.5-3(2.5)MG/3ML NEB HHN SCH ×2 (08:00→12:29)
[2022-01-13] MEDS ORDERED: FUROSEMIDE 40MG/4ML VIAL IVP NR (08:00)
[2022-01-13 08:38] LABS: CLARITY URINE CLEAR (CLEAR); COLOR URINE YELLOW (YELLOW); KETONES URINE 1+ (NEGATIVE); LEUKOCYTE ESTERASE URINE NEGATIVE (NEGATIVE); NITRITE URINE NEGATIVE (NEGATIVE); OCCULT BLOOD URINE NEGATIVE (NEGATIVE); PROTEIN URINE TRACE (NEGATIVE); SPECIFIC GRAVITY URINE 1.021 (1.005-1.030); UROBILINOGEN URINE 0.2 E.U./dL (0.2-1.0)
[2022-01-13] MEDS: CLOPIDOGREL 75MG TABLET PO SCH (08:38)
[2022-01-13] MEDS: FAMOTIDINE 20MG TABLET PO SCH (08:38)
[2022-01-13] MEDS: BACITRACIN 15GM TUBE TOP SCH ×2 (08:38→17:52)
[2022-01-13] MEDS: FUROSEMIDE 40MG TABLET PO SCH (08:38)
[2022-01-13] MEDS ORDERED: IPRATROPIUM/ALBUTEROL 0.5-3(2.5)MG/3ML NEB HHN PRN (13:00)
[2022-01-13] MEDS: OXYCODONE HCL/ACETAMINOPHEN 5/325MG TABLET PO PRN ×2 (13:34→19:42)
[2022-01-13] MEDS: METOPROLOL SUCCINATE 50MG ER TABLET PO SCH (14:57)
[2022-01-14] VITALS (15 sets, daily range): BP systolic 94–122; BP diastolic 53–78
[2022-01-14 06:03] LABS: CHLORIDE 101 mEq/L (98-107)
[2022-01-14 06:07] LABS: BASOPHILS % 0.7 % (0.0-2.0); EOSINOPHILS % 4.5 % (0.0-5.0); HEMATOCRIT. 37.9 % (36.0-48.0); LYMPHOCYTES % 14.8 % (20.0-50.0); MEAN CORPUSCULAR HEMOGLOBIN 29.1 pg (28.0-32.0); MEAN CORPUSCULAR VOLUME 85.1 fL (81.0-99.0); MEAN PLATELET VOLUME 8.7 fl (7.4-10.4); MONOCYTES % 8.1 % (2.0-8.0); NEUTROPHILS % 71.9 % (40.0-76.0); PLATELET 332 x1000/uL (130-400); RED BLOOD CELL COUNT 4.46 mill/uL (4.2-5.4); RED CELL DISTRIBUTION WIDTH 13.6 % (11.6-14.6)
[2022-01-14] MEDS: BLOOD SUGAR DIAGNOSTIC STRIP TEST SCH ×4 (06:30→21:00)
[2022-01-14] MEDS: CLOPIDOGREL 75MG TABLET PO SCH (07:58)
[2022-01-14] MEDS: DOCUSATE SODIUM 100MG CAPSULE PO SCH ×2 (07:58→18:01)
[2022-01-14] MEDS: FAMOTIDINE 20MG TABLET PO SCH (07:58)
[2022-01-14] MEDS: BACITRACIN 15GM TUBE TOP SCH ×2 (07:59→18:02)
[2022-01-14] MEDS: METOPROLOL SUCCINATE 50MG ER TABLET PO SCH ×2 (09:00→12:46)
[2022-01-14] MEDS: OXYCODONE HCL/ACETAMINOPHEN 5/325MG TABLET PO PRN (09:16)
[2022-01-15] VITALS (8 sets, daily range): BP systolic 78–149; BP diastolic 41–100
[2022-01-15] MEDS: OXYCODONE HCL/ACETAMINOPHEN 5/325MG TABLET PO PRN (05:12)
[2022-01-15] MEDS: BLOOD SUGAR DIAGNOSTIC STRIP TEST SCH ×2 (06:41→11:50)
[2022-01-15] MEDS: BACITRACIN 15GM TUBE TOP SCH (08:53)
[2022-01-15] MEDS: CLOPIDOGREL 75MG TABLET PO SCH (08:54)
[2022-01-15] MEDS: FAMOTIDINE 20MG TABLET PO SCH (08:54)
[2022-01-15] MEDS: DOCUSATE SODIUM 100MG CAPSULE PO SCH (08:54)
[2022-01-15] MEDS: METOPROLOL SUCCINATE 50MG ER TABLET PO SCH (08:54)
== END 2022-01-15 13:15 | disposition home or self-care (01) | DRG 236 ==
LOC: OR 09:30 → CVICU 09:31 → 5EST 01-12 04:45 → 3WST 01-12 14:25
PROVIDERS: ADMIT Thoracic Surgery (Cardiothoracic Vascular Surgery); ATTEND Thoracic Surgery (Cardiothoracic Vascular Surgery)
PROC: 02100Z8 Bypass Coronary Artery, One Artery from Right Internal Mammary, Open Approach (ICD-10-PCS; principal; 2022-01-10)
DX: I25.110 Atherosclerotic heart disease of native coronary artery with unstable angina pectoris (principal); Q24.5 Malformation of coronary vessels; D64.9 Anemia, unspecified; J45.909 Unspecified asthma, uncomplicated; I27.20 Pulmonary hypertension, unspecified; I10 Essential (primary) hypertension; E83.52 Hypercalcemia; D72.829 Elevated white blood cell count, unspecified; E78.00 Pure hypercholesterolemia, unspecified; K27.9 Peptic ulcer, site unspecified, unspecified as acute or chronic, without hemorrhage or perforation; K44.9 Diaphragmatic hernia without obstruction or gangrene; M50.90 Cervical disc disorder, unspecified, unspecified cervical region; M51.9 Unspecified thoracic, thoracolumbar and lumbosacral intervertebral disc disorder; N60.01 Solitary cyst of right breast; R73.9 Hyperglycemia, unspecified; R50.82 Postprocedural fever; Z87.11 Personal history of peptic ulcer disease; Z83.3 Family history of diabetes mellitus; Z79.02 Long term (current) use of antithrombotics/antiplatelets
CPT/HCPCS: 36415; 36600; 71045; 80048; 80053; 81003; 82375; 82805; 82962; 83735; 84100; 85025; 85347; 86850; 86900; 86920; 93005; 93306; 94640; 97110; 97116; 97162; 97166; 97530; 97535; A6261; C1729; C1751; C1758; C1769; J0690; J1100; J1250; J1265; J1644; J1815; J1885; J1940; J2270; J2440; J2720; J3010; J3475; J3480; J3490; J7050; J7060; L3908; P9047; Q9957

== ENCOUNTER → 2022-02-28 | Outpatient (CLI) | payer BC ==
[~2022-02-28] MED LIST changes: -ALBUMIN HUMAN 25GM/100ML (25%) IV ONE; +ASCO-339 PO; +FERR325T6 MT; -HEPARIN 10,000 UNITS/ML VIAL ONE; +IBUP-1653 MT; -MAGNESIUM SULFATE 5GM/10ML VIAL IV ONE; -METO25TA6 MT; -POTASSIUM CHLORIDE 40MEQ/20ML INJ IV ONE
[2022-02-28 13:40] LABS: BASOPHILS % 1.2 % (0.0-2.0); EOSINOPHILS % 5.9 % (0.0-5.0); HEMATOCRIT. 42.8 % (36.0-48.0); HEMOGLOBIN. 14.2 g/dL (12.0-16.0); LYMPHOCYTES % 27.3 % (20.0-50.0); MEAN CORPUSCULAR HEMOGLOBIN 28.7 pg (28.0-32.0); MEAN CORPUSCULAR VOLUME 86.3 fL (81.0-99.0); MEAN PLATELET VOLUME 7.8 fl (7.4-10.4); MONOCYTES % 6.4 % (2.0-8.0); NEUTROPHILS % 59.2 % (40.0-76.0); PLATELET 387 x1000/uL (130-400); RED BLOOD CELL COUNT 4.96 mill/uL (4.2-5.4); RED CELL DISTRIBUTION WIDTH 14.2 % (11.6-14.6)
[2022-02-28 13:54] LABS: CHLORIDE 109 mEq/L (98-107)
[2022-02-28 14:13] LABS: HDL CHOLESTEROL 62 mg/dL (40-59); LDL CHOLESTEROL 89 mg/dL (5-100); T4 FREE 0.93 ng/dL (0.76-1.46)
== END | disposition home or self-care (01) ==
LOC: LAB 13:01
PROVIDERS: ATTEND Specialist
DX: R94.31 Abnormal electrocardiogram [ECG] [EKG] (principal); I71.9 Aortic aneurysm of unspecified site, without rupture; E78.2 Mixed hyperlipidemia
CPT/HCPCS: 36415; 80053; 80061; 83036; 84439; 84443; 84481; 85025

== ENCOUNTER → 2022-09-05 | Outpatient (CLI) | payer BC ==
[2022-09-05 11:34] LABS: BASOPHILS % 2.5 % (0.0-2.0); EOSINOPHILS % 3.4 % (0.0-5.0); HEMATOCRIT. 45.9 % (36.0-48.0); HEMOGLOBIN. 15.3 g/dL (12.0-16.0); LYMPHOCYTES % 30.2 % (20.0-50.0); MEAN CORPUSCULAR HEMOGLOBIN 29.5 pg (28.0-32.0); MEAN CORPUSCULAR VOLUME 88.6 fL (81.0-99.0); MEAN PLATELET VOLUME 8.2 fl (7.4-10.4); NEUTROPHILS % 57.9 % (40.0-76.0); PLATELET 353 x1000/uL (130-400); RED BLOOD CELL COUNT 5.18 mill/uL (4.2-5.4)
[2022-09-05 12:01] LABS: CHLORIDE 103 mEq/L (98-107)
[2022-09-05 12:59] LABS: AMYLASE 55 IU/L (25-115); HDL CHOLESTEROL 87 mg/dL (40-59); LDL CHOLESTEROL 98 mg/dL (5-100); T4 FREE 1.21 ng/dL (0.76-1.46)
[2022-09-07 09:07] LABS: VITAMIN D 25-OH 21.2 ng/mL (30.0-100.0)
== END | disposition home or self-care (01) ==
LOC: LAB 10:47
PROVIDERS: ATTEND Internal Medicine Endocrinology, Diabetes & Metabolism
DX: E78.00 Pure hypercholesterolemia, unspecified (principal); E55.9 Vitamin D deficiency, unspecified; R94.6 Abnormal results of thyroid function studies
CPT/HCPCS: 36415; 80053; 80061; 82150; 82306; 84439; 84443; 84481; 85025; 85651

== ENCOUNTER → 2022-09-06 | Day surgery (SDC) | payer BC ==
[~2022-09-06] MED LIST changes: +REGADENOSON 0.4 MG/5 ML IV ONE
== END | disposition home or self-care (01) ==
LOC: CARD 08:14
PROVIDERS: ATTEND Specialist
DX: I25.10 Atherosclerotic heart disease of native coronary artery without angina pectoris (principal); R07.9 Chest pain, unspecified
CPT/HCPCS: 93350; J2785

== ENCOUNTER → 2022-09-27 | Outpatient (CLI) | payer BC ==
[~2022-09-27] MED LIST changes: +IOHEXOL-350 100 ML BOTTLE ONE; +NITROGLYCERIN SPRAY/4.9GM CAN TL ONE; -REGADENOSON 0.4 MG/5 ML IV ONE
== END | disposition home or self-care (01) ==
LOC: CT 09:46
PROVIDERS: ATTEND Specialist
DX: R07.89 Other chest pain (principal)
CPT/HCPCS: 75571; Q9967; Z7610

== ENCOUNTER 2022-10-17 10:50 | Day surgery (SDC) | payer BC ==
[~2022-10-17] VITALS: Ht 157.5 cm; Wt 69.9 kg
[~2022-10-17 10:50] MED LIST changes: -IOHEXOL-350 100 ML BOTTLE ONE; -NITROGLYCERIN SPRAY/4.9GM CAN TL ONE
[2022-10-17] MEDS ORDERED: FAMOTIDINE 20MG/2ML VIAL IV ONE (11:19)
[2022-10-17] MEDS ORDERED: DIPHENHYDRAMINE 50MG/ML VIAL ONE (11:19)
[2022-10-17] MEDS ORDERED: ASPIRIN/SOD BICARB/CITRIC ACID 324MG TAB EFF ONE (11:19)
[2022-10-17] MEDS ORDERED: LIDOCAINE HCL 1% 20ML VIAL (Pyxis) INJ ONE (12:03)
[2022-10-17] MEDS ORDERED: MIDAZOLAM HCL 2 MG/2 ML VIAL ONE (12:03)
[2022-10-17] MEDS ORDERED: FENTANYL CITRATE/PF 50MCG/ML 2ML VIAL ONE (12:03)
[2022-10-17] MEDS ORDERED: IODIXANOL 320MG/ML 100 ML BOTTLE IV ONE (12:04)
[2022-10-17] MEDS ORDERED: HEPARIN 1000 UNITS/ML 10ML ONE (12:04)
[2022-10-17] MEDS ORDERED: METO-396 MT (12:11)
[2022-10-17] MEDS ORDERED: ASPI-1497 MT (12:11)
[2022-10-17] MEDS ORDERED: HYDROCORTISONE SOD SUCCINATE 250 MG/2 ML VIAL ONE (12:19)
[2022-10-17] MEDS ORDERED: ACETAMINOPHEN 325MG TABLET PO PRN (13:30)
[2022-10-17] MEDS ORDERED: ATROPINE SULFATE 1MG/10ML SYR IV PRN (13:30)
[2022-10-17] MEDS ORDERED: ONDANSETRON HCL 4MG/2ML INJ IV PRN (13:30)
[2022-10-17] MEDS ORDERED: MORPHINE SULFATE 2 MG/ML CPJ (NOT FOR IM USE) IV PRN (13:30)
== END 2022-10-17 17:45 | disposition home or self-care (01) ==
LOC: CCL 10:50
PROVIDERS: ATTEND Specialist
DX: I25.10 Atherosclerotic heart disease of native coronary artery without angina pectoris (principal); I10 Essential (primary) hypertension; E78.5 Hyperlipidemia, unspecified; Z95.1 Presence of aortocoronary bypass graft; Z79.899 Other long term (current) drug therapy; Z79.82 Long term (current) use of aspirin; Z98.890 Other specified postprocedural states; Z91.013 Allergy to seafood; Z88.8 Allergy status to other drugs, medicaments and biological substances
CPT/HCPCS: 93459; C1769; C1887; C1893; J1200; J1644; J1720; J2250; J3010; J3490; Q9967; 99152; 99153; G0500

== ENCOUNTER → 2022-11-16 | Outpatient (CLI) | payer BC ==
[~2022-11-16] MED LIST changes: +ACET-2708 PO; +ASCO500C18 PO; +ASPI-1497 MT; +MECO10005 PO; +METO-396 MT; +METO25TA6 PO
[2022-11-16 12:06] LABS: BASOPHILS % 1.1 % (0.0-2.0); HEMATOCRIT. 45.6 % (36.0-48.0); HEMOGLOBIN. 15.2 g/dL (12.0-16.0); LYMPHOCYTES % 28.5 % (20.0-50.0); MEAN CORPUSCULAR HEMOGLOBIN 29.2 pg (28.0-32.0); MEAN CORPUSCULAR VOLUME 87.4 fL (81.0-99.0); MEAN PLATELET VOLUME 8.4 fl (7.4-10.4); NEUTROPHILS % 61.4 % (40.0-76.0); PLATELET 323 x1000/uL (130-400); RED BLOOD CELL COUNT 5.22 mill/uL (4.2-5.4); RED CELL DISTRIBUTION WIDTH 14.1 % (11.6-14.6)
[2022-11-16 12:07] LABS: CLARITY URINE CLEAR (CLEAR); COLOR URINE YELLOW (YELLOW); KETONES URINE NEGATIVE (NEGATIVE); LEUKOCYTE ESTERASE URINE NEGATIVE (NEGATIVE); NITRITE URINE NEGATIVE (NEGATIVE); OCCULT BLOOD URINE NEGATIVE (NEGATIVE); PH URINE 5.5 (4.5-8.0); PROTEIN URINE NEGATIVE (NEGATIVE); UROBILINOGEN URINE 0.2 E.U./dL (0.2-1.0)
[2022-11-16 12:14] LABS: CHLORIDE 108 mEq/L (98-107)
[2022-11-16 12:16] LABS: PARTIAL THROMBOPLASTIN TIME 30.7 sec (23.4-31.0); PROTHROMBIN TIME 10.9 sec (9.6-11.0)
== END | disposition home or self-care (01) ==
LOC: PVL 10:09
PROVIDERS: ATTEND Thoracic Surgery (Cardiothoracic Vascular Surgery)
DX: Z01.818 Encounter for other preprocedural examination (principal); I25.10 Atherosclerotic heart disease of native coronary artery without angina pectoris; Z20.822 Contact with and (suspected) exposure to COVID-19
CPT/HCPCS: 36415; 71045; 80053; 81003; 83036; 83735; 84443; 85025; 87426; 93005; 93880

== ENCOUNTER 2022-11-21 05:25 | Inpatient (IN) | payer BC ==
[2022-11-21] VITALS (50 sets, daily range): BP systolic 91–141; BP diastolic 49–90
[~2022-11-21] VITALS: Ht 152.4 cm; Wt 66.7 kg
[~2022-11-21 05:25] MED LIST changes: -ASCO-339 PO; -B12/1TAB PO; +DOPAMINE 400MG/250ML PREMIX 250 ML IV ONE; +HEPARIN 1000 UNITS/ML 10ML ONE; -IBUP-1653 MT; -METO-396 MT; +NICARDIPINE 40MG/200ML PREMIX 200 ML IV ONE; +POLYMYXIN B SULFATE 500000 UNITS/VIAL ONE; +SEVOFLURANE 250 ML LIQUID INH ONE; +THROMBIN (BOVINE) 5000 UNITS/VIAL TOP ONE
[2022-11-21] MEDS: DOPAMINE 400MG/250ML PREMIX 250 ML IV SCH ×2 (05:36→11:34)
[2022-11-21] MEDS ORDERED: SODIUM CHLORIDE 0.9% 1,000 ML IV SCH (06:00)
[2022-11-21] MEDS ORDERED: INSULIN REGULAR 100U/100ML PMX 100 ML IV NR (07:00)
[2022-11-21] MEDS ORDERED: CEFAZOLIN 2,000 MG in DEXT 5% WATER 100 ML IV NR (07:00)
[2022-11-21] MEDS ORDERED: EPINEPHRINE 5 MG in DEXT 5% WATER 245 ML IV NR (07:00)
[2022-11-21] MEDS ORDERED: NOREPINEPHRINE 8 MG in DEXT 5% WATER 242 ML IV NR (07:00)
[2022-11-21] MEDS ORDERED: PAPAVERINE HCL 180MG in SODIUM CHLORIDE 0.9% 24ML IV NR (07:00)
[2022-11-21] MEDS ORDERED: DEL NIDO ELECTROLYTE-S(PH 7.4) 1,000 ML IV NR ×2 (07:00)
[2022-11-21] MEDS ORDERED: ROCURONIUM BROMIDE 10MG/ML VIAL 5ML IV ONE (07:16)
[2022-11-21] MEDS ORDERED: FENTANYL CITRATE/PF 50MCG/ML 2ML VIAL ONE (07:17)
[2022-11-21] MEDS ORDERED: CALCIUM CHLORIDE 1GM/10ML SYR IV ONE ×3 (08:17→09:55)
[2022-11-21] MEDS ORDERED: THROMBIN (BOVINE) 5000 UNITS/VIAL TOP ONE (08:31)
[2022-11-21] MEDS ORDERED: GLYCOPYRROLATE 0.2 MG/ML 2ML VIAL ONE ×2 (08:33→09:33)
[2022-11-21] MEDS ORDERED: HEPARIN 1000 UNITS/ML 10ML ONE ×3 (09:17→09:55)
[2022-11-21] MEDS ORDERED: PROTAMINE SULFATE 10MG/ML VIAL 25ML IV ONE (09:28)
[2022-11-21] MEDS ORDERED: DEXMEDETOMIDINE 400 MCG/100 ML 100 ML IV ONE (09:28)
[2022-11-21] MEDS ORDERED: ALBUTEROL 6.7GM HFA INHALER ONE (09:28)
[2022-11-21] MEDS ORDERED: NEOSTIGMINE METHYLSULFATE 1MG/ML 10 ML VIAL ONE (09:33)
[2022-11-21] MEDS ORDERED: SODIUM BICARBONATE 8.4% 1 MEQ/ML 50ML SYR IV ONE (09:55)
[2022-11-21] MEDS ORDERED: PHENYLEPHRINE HCL 10 MG/ML 1ML (IV VIAL) IV ONE (09:55)
[2022-11-21] MEDS ORDERED: HEPARIN 10,000 UNITS/ML VIAL ONE (09:55)
[2022-11-21] MEDS ORDERED: MAGNESIUM SULFATE 5GM/10ML VIAL IV ONE ×2 (09:55→10:13)
[2022-11-21] MEDS ORDERED: MANNITOL 20% (20GM/100ML) BAG 500ML PREMIX IV ONE (09:55)
[2022-11-21] MEDS ORDERED: POTASSIUM CHLORIDE 40MEQ/20ML INJ IV ONE (09:55)
[2022-11-21] MEDS ORDERED: ALBUMIN HUMAN 25GM/100ML (25%) IV ONE ×2 (09:55→10:16)
[2022-11-21] MEDS ORDERED: AMINOCAPROIC ACID 250 MG/ML 20ML VIAL ONE (09:55)
[2022-11-21] MEDS ORDERED: VASOPRESSIN 20 UNIT/ML 1ML ONE (10:05)
[2022-11-21] MEDS ORDERED: DEXTROSE 50% WATER 50ML SYRINGE IV PRN ×2 (10:15)
[2022-11-21] MEDS ORDERED: CALCIUM CHLORIDE 3,000 MG in DEXT 5% WATER 250 ML IV PRN (10:30)
[2022-11-21] MEDS ORDERED: MAGNESIUM SULFATE 3 GM in DEXT 5% WATER 100 ML IV PRN (10:30)
[2022-11-21] MEDS ORDERED: KETOROLAC 15MG/ML VIAL IV PRN (10:30)
[2022-11-21] MEDS ORDERED: ACETAMINOPHEN 325MG TABLET PO PRN (10:30)
[2022-11-21] MEDS ORDERED: MAGNESIUM 1 G PREMIX 100 ML IV PRN (10:30)
[2022-11-21] MEDS ORDERED: IPRATROPIUM/ALBUTEROL 0.5-3(2.5)MG/3ML NEB HHN SCH (10:30)
[2022-11-21] MEDS ORDERED: OXYCODONE HCL/ACETAMINOPHEN 5/325MG TABLET PO PRN (10:30)
[2022-11-21] MEDS ORDERED: ALBUMIN HUMAN 25GM/100ML (25%) IV PRN (10:30)
[2022-11-21] MEDS ORDERED: MAGNESIUM 2 G PREMIX 50 ML IV PRN (10:30)
[2022-11-21] MEDS ORDERED: SODIUM CHLORIDE 0.9% 500 ML IV PRN (10:30)
[2022-11-21] MEDS ORDERED: ALBUMIN HUMAN 12.5G/250ML (5%) IV PRN (10:30)
[2022-11-21] MEDS ORDERED: INSULIN REGULAR 100U/100ML PMX 100 ML IV SCH (10:45)
[2022-11-21] MEDS ORDERED: AMIODARONE HCL 900 MG in DEXT 5% WATER 482 ML IV SCH (10:45)
[2022-11-21] MEDS ORDERED: AMIODARONE HCL 900 MG in DEXT 5% WATER 482 ML IV PRN (10:45)
[2022-11-21] MEDS ORDERED: NALOXONE HCL 0.4MG/ML VIAL IV PRN (11:00)
[2022-11-21 11:03] LABS: BG BASE EXCESS -2.8 mmol/L (-2.0-2.0); BG CARBOXYHEMOGLOBIN 0.3 % (0.5-1.5); BG DEOXYHEMOGLOBIN 3.4 % (0.0-5.0); BG FRACTION INSPIRED OXYGEN 100; BG HCO3 ACT 22.8 mmol/L (22.0-26.0); BG METHEMOGLOBIN 0.3 % (0.0-1.5); BG OXYGEN SATURATION 96.6 % (92.0-98.5); BG PCO2 43.1 mmHg (35.0-45.0); BG PH 7.342 (7.350-7.450); BG PO2 94.9 mmHg (75.0-100.0); BG SAMPLE SITE ALINE; BG TOTAL HEMOGLOBIN 11.4 g/dL (12.0-18.0); BG VENT MODE MASK - NRB
[2022-11-21 11:24] LABS: BASOPHILS % 0.5 % (0.0-2.0); EOSINOPHILS % 0.8 % (0.0-5.0); HEMATOCRIT. 27.3 % (36.0-48.0); HEMOGLOBIN. 9.1 g/dL (12.0-16.0); LYMPHOCYTES % 14.6 % (20.0-50.0); MEAN CORPUSCULAR HEMOGLOBIN 29.3 pg (28.0-32.0); MEAN CORPUSCULAR VOLUME 88.2 fL (81.0-99.0); MEAN PLATELET VOLUME 8.5 fl (7.4-10.4); MONOCYTES % 1.4 % (2.0-8.0); NEUTROPHILS % 82.7 % (40.0-76.0); PLATELET 222 x1000/uL (130-400); RED BLOOD CELL COUNT 3.09 mill/uL (4.2-5.4)
[2022-11-21] MEDS: BLOOD SUGAR DIAGNOSTIC STRIP TEST SCH ×13 (11:34→23:15)
[2022-11-21] MEDS ORDERED: KCL 10MEQ/50ML PREMIX 100 ML IV PRN (11:45)
[2022-11-21] MEDS ORDERED: DEXT 5%/0.45% NACL 1000ML 1,000 ML IV SCH ×2 (11:45→12:15)
[2022-11-21 11:54] LABS: CHLORIDE 117 mEq/L (98-107)
[2022-11-21] MEDS: KCL 10MEQ/50ML PREMIX 200 ML IV PRN ×4 (12:36→16:13)
[2022-11-21] MEDS: ONDANSETRON HCL 4MG/2ML INJ IV PRN (15:32)
[2022-11-21] MEDS: CEFAZOLIN 1000MG PREMIX 50 ML IV SCH (16:32)
[2022-11-21] MEDS: BACITRACIN 15GM TUBE TOP SCH (16:41)
[2022-11-21 17:42] LABS: HEMOGLOBIN. 9.7 g/dL (12.0-16.0); MEAN CORPUSCULAR HEMOGLOBIN 29.2 pg (28.0-32.0); MEAN CORPUSCULAR VOLUME 86.9 fL (81.0-99.0); MEAN PLATELET VOLUME 8.6 fl (7.4-10.4); PLATELET 215 x1000/uL (130-400); RED BLOOD CELL COUNT 3.33 mill/uL (4.2-5.4)
[2022-11-21 17:53] LABS: CHLORIDE 118 mEq/L (98-107)
[2022-11-21] MEDS: KCL 10MEQ/50ML PREMIX 150 ML IV PRN ×2 (18:04→19:06)
[2022-11-21 18:24] LABS: PLATELET ESTIMATE NORMAL
[2022-11-21] MEDS ORDERED: KCL 20MEQ/100ML PREMIX 100 ML IV NR (20:30)
[2022-11-21] MEDS: IPRATROPIUM BROMIDE (0.02%) 0.5MG/2.5ML NEB HHN SCH (20:30)
[2022-11-21] MEDS ORDERED: MAGNESIUM 2 G PREMIX 50 ML IV NR (20:30)
[2022-11-21] MEDS: ALBUTEROL (0.083%) 2.5MG/3ML NEB HHN SCH (20:31)
[2022-11-21] MEDS: AMIODARONE HCL 200 MG TABLET PO SCH (21:11)
[2022-11-21 23:10] LABS: HEMATOCRIT. 31.4 % (36.0-48.0); HEMOGLOBIN. 10.7 g/dL (12.0-16.0); MEAN CORPUSCULAR HEMOGLOBIN 29.6 pg (28.0-32.0); MEAN CORPUSCULAR VOLUME 87.2 fL (81.0-99.0); MEAN PLATELET VOLUME 8.5 fl (7.4-10.4); PLATELET 233 x1000/uL (130-400); RED CELL DISTRIBUTION WIDTH 14.1 % (11.6-14.6)
[2022-11-21 23:14] LABS: CHLORIDE 108 mEq/L (98-107)
[2022-11-22] VITALS (68 sets, daily range): BP systolic 90–271; BP diastolic 49–271
[2022-11-22] MEDS: IPRATROPIUM BROMIDE (0.02%) 0.5MG/2.5ML NEB HHN SCH ×6 (00:12→21:51)
[2022-11-22] MEDS: ALBUTEROL (0.083%) 2.5MG/3ML NEB HHN SCH ×6 (00:12→21:51)
[2022-11-22] MEDS: CEFAZOLIN 1000MG PREMIX 50 ML IV SCH ×3 (00:15→16:54)
[2022-11-22] MEDS: BLOOD SUGAR DIAGNOSTIC STRIP TEST SCH ×11 (00:15→21:25)
[2022-11-22] MEDS: OXYCODONE HCL/ACETAMINOPHEN 5/325MG TABLET PO PRN (00:21)
[2022-11-22 01:28] LABS: PLATELET ESTIMATE NORMAL
[2022-11-22 07:07] LABS: CHLORIDE 106 mEq/L (98-107)
[2022-11-22 07:19] LABS: HEMATOCRIT. 31.7 % (36.0-48.0); HEMOGLOBIN. 10.7 g/dL (12.0-16.0); MEAN CORPUSCULAR HEMOGLOBIN 29.6 pg (28.0-32.0); MEAN CORPUSCULAR VOLUME 87.5 fL (81.0-99.0); PLATELET 242 x1000/uL (130-400); RED BLOOD CELL COUNT 3.62 mill/uL (4.2-5.4); RED CELL DISTRIBUTION WIDTH 13.7 % (11.6-14.6)
[2022-11-22] MEDS ORDERED: DEXTROSE 50% WATER 50ML SYRINGE IV PRN (08:30)
[2022-11-22] MEDS: AMIODARONE HCL 200 MG TABLET PO SCH ×2 (08:34→21:27)
[2022-11-22] MEDS: FAMOTIDINE 20MG/2ML VIAL IV SCH (08:34)
[2022-11-22] MEDS: ASPIRIN 81MG TABLET PO SCH (08:34)
[2022-11-22] MEDS: BACITRACIN 15GM TUBE TOP SCH ×2 (08:34→16:45)
[2022-11-22] MEDS: CLOPIDOGREL 75MG TABLET PO SCH (08:34)
[2022-11-22] MEDS: ONDANSETRON HCL 4MG/2ML INJ IV PRN ×2 (08:52→13:36)
[2022-11-22] MEDS ORDERED: FUROSEMIDE 20MG/2ML VIAL IVP NR (16:30)
[2022-11-22 16:40] LABS: PLATELET ESTIMATE NORMAL
[2022-11-23] VITALS (32 sets, daily range): BP systolic 90–130; BP diastolic 52–87
[2022-11-23] MEDS: DOPAMINE 400MG/250ML PREMIX 250 ML IV SCH ×2 (00:42→19:48)
[2022-11-23] MEDS: IPRATROPIUM BROMIDE (0.02%) 0.5MG/2.5ML NEB HHN SCH ×6 (01:08→22:33)
[2022-11-23] MEDS: ALBUTEROL (0.083%) 2.5MG/3ML NEB HHN SCH ×6 (01:09→22:34)
[2022-11-23] MEDS: BLOOD SUGAR DIAGNOSTIC STRIP TEST SCH ×4 (05:42→20:20)
[2022-11-23 05:46] LABS: BASOPHILS % 0.2 % (0.0-2.0); EOSINOPHILS % 0.4 % (0.0-5.0); HEMATOCRIT. 34.3 % (36.0-48.0); HEMOGLOBIN. 11.5 g/dL (12.0-16.0); LYMPHOCYTES % 12.6 % (20.0-50.0); MEAN CORPUSCULAR HEMOGLOBIN 29.3 pg (28.0-32.0); MEAN CORPUSCULAR VOLUME 87.7 fL (81.0-99.0); MEAN PLATELET VOLUME 8.9 fl (7.4-10.4); MONOCYTES % 6.2 % (2.0-8.0); NEUTROPHILS % 80.6 % (40.0-76.0); PLATELET 243 x1000/uL (130-400); RED BLOOD CELL COUNT 3.91 mill/uL (4.2-5.4); RED CELL DISTRIBUTION WIDTH 14.1 % (11.6-14.6)
[2022-11-23] MEDS: CLOPIDOGREL 75MG TABLET PO SCH (08:58)
[2022-11-23] MEDS: AMIODARONE HCL 200 MG TABLET PO SCH ×2 (08:58→20:20)
[2022-11-23] MEDS: FAMOTIDINE 20MG/2ML VIAL IV SCH (08:58)
[2022-11-23] MEDS: ASPIRIN 81MG TABLET PO SCH (08:58)
[2022-11-23] MEDS: BACITRACIN 15GM TUBE TOP SCH ×2 (08:59→20:21)
[2022-11-23] MEDS ORDERED: MAGNESIUM 2 G PREMIX 50 ML IV NR ×2 (09:15→19:30)
[2022-11-23] MEDS ORDERED: FUROSEMIDE 40MG/4ML VIAL IVP NR (19:30)
[2022-11-23] MEDS ORDERED: ALBUMIN HUMAN 25GM/100ML (25%) IV NR (19:30)
[2022-11-24 00:18] VITALS: BP 138/91
[2022-11-24] MEDS: OXYCODONE HCL/ACETAMINOPHEN 5/325MG TABLET PO PRN (00:47)
[2022-11-24] MEDS: ALBUTEROL (0.083%) 2.5MG/3ML NEB HHN SCH ×6 (01:00→20:56)
[2022-11-24] MEDS: IPRATROPIUM BROMIDE (0.02%) 0.5MG/2.5ML NEB HHN SCH ×6 (01:00→20:55)
[2022-11-24 04:36] VITALS: BP 110/76
[2022-11-24 05:55] LABS: BASOPHILS % 0.5 % (0.0-2.0); EOSINOPHILS % 1.9 % (0.0-5.0); HEMATOCRIT. 36.2 % (36.0-48.0); MEAN CORPUSCULAR HEMOGLOBIN 28.9 pg (28.0-32.0); MEAN CORPUSCULAR VOLUME 86.9 fL (81.0-99.0); MEAN PLATELET VOLUME 8.9 fl (7.4-10.4); MONOCYTES % 9.6 % (2.0-8.0); PLATELET 236 x1000/uL (130-400); RED BLOOD CELL COUNT 4.16 mill/uL (4.2-5.4); RED CELL DISTRIBUTION WIDTH 13.8 % (11.6-14.6)
[2022-11-24 06:10] LABS: CHLORIDE 100 mEq/L (98-107)
[2022-11-24] MEDS: BLOOD SUGAR DIAGNOSTIC STRIP TEST SCH ×4 (06:27→21:22)
[2022-11-24] MEDS: ASPIRIN 81MG TABLET PO SCH (07:48)
[2022-11-24] MEDS: CLOPIDOGREL 75MG TABLET PO SCH (07:48)
[2022-11-24] MEDS: FAMOTIDINE 20MG/2ML VIAL IV SCH (07:48)
[2022-11-24] MEDS: AMIODARONE HCL 200 MG TABLET PO SCH (07:48)
[2022-11-24] MEDS: BACITRACIN 15GM TUBE TOP SCH ×2 (07:49→17:25)
[2022-11-24 08:00] VITALS: BP 101/68
[2022-11-24] MEDS: ONDANSETRON HCL 4MG/2ML INJ IV PRN (10:35)
[2022-11-24 12:00] VITALS: BP 114/73
[2022-11-24 16:00] VITALS: BP 128/88
[2022-11-24] MEDS: METOPROLOL SUCCINATE 50MG ER TABLET PO SCH (17:24)
[2022-11-24 19:54] VITALS: BP 130/62
[2022-11-25] VITALS (7 sets, daily range): BP systolic 102–123; BP diastolic 68–99
[2022-11-25] MEDS: ALBUTEROL (0.083%) 2.5MG/3ML NEB HHN SCH ×4 (01:03→12:07)
[2022-11-25] MEDS: IPRATROPIUM BROMIDE (0.02%) 0.5MG/2.5ML NEB HHN SCH ×4 (01:03→12:07)
[2022-11-25] MEDS: BLOOD SUGAR DIAGNOSTIC STRIP TEST SCH (06:07)
[2022-11-25] MEDS: CLOPIDOGREL 75MG TABLET PO SCH (08:05)
[2022-11-25] MEDS: ASPIRIN 81MG TABLET PO SCH (08:06)
[2022-11-25] MEDS: FAMOTIDINE 20MG/2ML VIAL IV SCH (08:06)
[2022-11-25] MEDS: METOPROLOL SUCCINATE 50MG ER TABLET PO SCH (08:07)
[2022-11-25] MEDS: BACITRACIN 15GM TUBE TOP SCH (08:11)
[2022-11-25] MEDS ORDERED: FUROSEMIDE 20MG/2ML VIAL IVP SCH (09:00)
[2022-11-25] MEDS ORDERED: CLOP75TA15 PO (09:04)
[2022-11-25] MEDS ORDERED: ASPI-1160 PO (09:04)
[2022-11-25] MEDS ORDERED: OXYC1TAB5 PO (09:04)
[2022-11-25] MEDS ORDERED: METO-385 PO (09:04)
[2022-11-25] MEDS ORDERED: TRAMADOL 50MG TABLET PO PRN (09:15)
[2022-11-25] MEDS ORDERED: TRAM50TA3 PO (09:16)
[2022-11-25] MEDS ORDERED: FURO20TA4 PO ×2 (09:16)
[2022-11-25] MEDS ORDERED: IBUP-2028 PO ×2 (09:21)
[2022-11-25] MEDS ORDERED: IBUPROFEN 400MG TABLET PO PRN ×2 (09:30)
[2022-11-25] MEDS ORDERED: HYDR-4001 MT (16:13)
[2022-11-26] MEDS ORDERED: FUROSEMIDE 20MG TABLET PO SCH (09:00)
[2022-11-28] MEDS ORDERED: DEXT 5%/0.45% NACL 1000ML 1,000 ML IV SCH
== END 2022-11-25 13:36 | disposition home or self-care (01) | DRG 236 ==
LOC: OR 05:25 → CVICU 05:26 → 3WST 11-23 00:11
PROVIDERS: ADMIT Thoracic Surgery (Cardiothoracic Vascular Surgery); ATTEND Thoracic Surgery (Cardiothoracic Vascular Surgery)
PROC: 021009W Bypass Coronary Artery, One Artery from Aorta with Autologous Venous Tissue, Open Approach (ICD-10-PCS; principal; 2022-11-21)
PROC: 06BQ4ZZ Excision of Left Saphenous Vein, Percutaneous Endoscopic Approach (ICD-10-PCS; 2022-11-21)
PROC: 5A1221Z Performance of Cardiac Output, Continuous (ICD-10-PCS; 2022-11-21)
DX: R07.9 Chest pain, unspecified (principal); Q24.5 Malformation of coronary vessels; E78.5 Hyperlipidemia, unspecified; I10 Essential (primary) hypertension; E87.6 Hypokalemia; Z20.822 Contact with and (suspected) exposure to COVID-19; I25.10 Atherosclerotic heart disease of native coronary artery without angina pectoris; D64.9 Anemia, unspecified; Z79.02 Long term (current) use of antithrombotics/antiplatelets; Z79.82 Long term (current) use of aspirin; Z79.899 Other long term (current) drug therapy; Z91.013 Allergy to seafood
CPT/HCPCS: 36415; 36600; 71045; 80048; 82375; 82805; 82962; 83036; 83735; 84132; 85025; 85347; 86850; 86900; 86920; 87426; 93005; 94640; 97110; 97116; 97162; 97166; 97530; 97535; C1725; C1729; C1751; C1758; C9803; J0282; J0690; J1265; J1644; J1815; J1885; J1940; J2370; J2405; J2440; J2710; J2720; J3010; J3475; J3480; J3490; J7060; L3908; P9047; Q9957

== ENCOUNTER → 2023-02-09 | Outpatient (CLI) | payer BC ==
[~2023-02-09] MED LIST changes: +ASPI-1160 PO; +CLOP75TA15 PO; -DOPAMINE 400MG/250ML PREMIX 250 ML IV ONE; -FERR325T6 MT; -HEPARIN 1000 UNITS/ML 10ML ONE; +HYDR-4001 MT; +METO-385 PO; -METO25TA6 PO; -NICARDIPINE 40MG/200ML PREMIX 200 ML IV ONE; -POLYMYXIN B SULFATE 500000 UNITS/VIAL ONE; -SEVOFLURANE 250 ML LIQUID INH ONE; -THROMBIN (BOVINE) 5000 UNITS/VIAL TOP ONE
[2023-02-09 09:47] LABS: BASOPHILS % 1.9 % (0.0-2.0); EOSINOPHILS % 4.9 % (0.0-5.0); HEMOGLOBIN. 14.4 g/dL (12.0-16.0); LYMPHOCYTES % 32.3 % (20.0-50.0); MEAN CORPUSCULAR HEMOGLOBIN 29.8 pg (28.0-32.0); MEAN CORPUSCULAR VOLUME 86.8 fL (81.0-99.0); MEAN PLATELET VOLUME 8.3 fl (7.4-10.4); MONOCYTES % 7.4 % (2.0-8.0); NEUTROPHILS % 53.5 % (40.0-76.0); PLATELET 322 x1000/uL (130-400); RED BLOOD CELL COUNT 4.84 mill/uL (4.2-5.4); RED CELL DISTRIBUTION WIDTH 14.4 % (11.6-14.6)
[2023-02-09 09:55] LABS: CHLORIDE 109 mEq/L (98-107)
[2023-02-09 10:09] LABS: HDL CHOLESTEROL 84 mg/dL (40-59); LDL CHOLESTEROL 96 mg/dL (5-100); T4 FREE 1.07 ng/dL (0.76-1.46)
== END | disposition home or self-care (01) ==
LOC: LAB 09:21
PROVIDERS: ATTEND Specialist
DX: R94.31 Abnormal electrocardiogram [ECG] [EKG] (principal); I11.9 Hypertensive heart disease without heart failure; E78.2 Mixed hyperlipidemia
CPT/HCPCS: 36415; 80053; 80061; 83036; 84439; 84443; 85025

== ENCOUNTER → 2023-04-02 | Outpatient (CLI) | payer BC ==
[~2023-04-02] MED LIST changes: +FURO20TA4 PO
== END | disposition home or self-care (01) ==
LOC: CARD 08:57
PROVIDERS: ATTEND Specialist
DX: I25.10 Atherosclerotic heart disease of native coronary artery without angina pectoris (principal)
CPT/HCPCS: 93350

== ENCOUNTER → 2023-09-11 | Outpatient (CLI) | payer BC ==
[~2023-09-11] MED LIST changes: +CLOP75TA33 MT
== END | disposition home or self-care (01) ==
LOC: LAB 10:59
PROVIDERS: ATTEND Specialist
DX: I11.9 Hypertensive heart disease without heart failure (principal); R94.31 Abnormal electrocardiogram [ECG] [EKG]; E78.2 Mixed hyperlipidemia
CPT/HCPCS: 83036

== ENCOUNTER → 2023-09-11 | Outpatient (CLI) | payer BC ==
[2023-09-11 11:46] LABS: ALANINE AMINOTRANSFERASE 10 IU/L (10-49); ALBUMIN 4.4 g/dL (3.2-4.8); AMYLASE 80 IU/L (30-118); ASPARTATE AMINOTRANSFERASE 21 IU/L (<34); BILIRUBIN TOTAL 0.6 mg/dL (0.1-1.0); CALCIUM 9.7 mg/dL (8.7-10.4); CARBON DIOXIDE 26 mEq/L (21-32); CHLORIDE 106 mEq/L (98-107); CHOLESTEROL 170 mg/dL (<200); CREATININE 0.8 mg/dL (0.6-1.0); GLUCOSE 80 mg/dL (70-105); HDL CHOLESTEROL 76 mg/dL (>65); LDL CHOLESTEROL 101 mg/dL (5-100); POTASSIUM 4.1 mEq/L (3.5-5.1); PROTEIN TOTAL 7.2 g/dL (6.0-8.3); SODIUM 140 mEq/L (136-145); T4 FREE 1.28 ng/dL (0.89-1.76); THYROID STIMULATING HORMONE 1.35 uIU/mL (0.55-4.78); TRIGLYCERIDE 108 mg/dL (0-150); UREA NITROGEN BLOOD 9 mg/dL (9-23)
[2023-09-11 11:51] LABS: BASOPHILS % 2.2 % (0.0-2.0); EOSINOPHILS % 5.4 % (0.0-5.0); HEMATOCRIT. 45.6 % (36.0-48.0); HEMOGLOBIN. 14.9 g/dL (12.0-16.0); LYMPHOCYTES % 29.7 % (20.0-50.0); MEAN CORPUSCULAR HEMOGLOBIN 28.9 pg (28.0-32.0); MEAN CORPUSCULAR HGB CONC 32.7 g/dL (31.0-37.0); MEAN CORPUSCULAR VOLUME 88.2 fL (81.0-99.0); MEAN PLATELET VOLUME 8.5 fl (7.4-10.4); MONOCYTES % 6.2 % (2.0-8.0); NEUTROPHILS % 56.5 % (40.0-76.0); PLATELET 342 x1000/uL (130-400); RED BLOOD CELL COUNT 5.17 mill/uL (4.2-5.4); RED CELL DISTRIBUTION WIDTH 14.1 % (11.6-14.6); WHITE BLOOD COUNT 6.6 x1000/uL (4.5-11.0)
[2023-09-12 08:12] LABS: *T3 UPTAKE 29 % (24-39); VITAMIN D 25-OH 16.7 ng/mL (30.0-100.0)
== END | disposition home or self-care (01) ==
LOC: LAB 10:48
PROVIDERS: ATTEND Internal Medicine Endocrinology, Diabetes & Metabolism
DX: E78.5 Hyperlipidemia, unspecified (principal); E55.9 Vitamin D deficiency, unspecified; R94.6 Abnormal results of thyroid function studies
CPT/HCPCS: 36415; 80053; 80061; 82150; 82306; 84439; 84443; 84479; 85025

== ENCOUNTER → 2024-01-17 | Outpatient (CLI) | payer BC | END | disposition home or self-care (01) | LOC: MAMMO 09:23 | PROVIDERS: ATTEND Internal Medicine Endocrinology, Diabetes & Metabolism | DX: Z12.31 Encounter for screening mammogram for malignant neoplasm of breast (principal) | CPT/HCPCS: 77063; 77067 ==

== ENCOUNTER → 2024-01-23 | Outpatient (CLI) | payer BC | END | disposition home or self-care (01) | LOC: CT 08:26 | PROVIDERS: ATTEND Obstetrics & Gynecology Obstetrics | DX: K57.30 Diverticulosis of large intestine without perforation or abscess without bleeding (principal); C56.9 Malignant neoplasm of unspecified ovary; I34.0 Nonrheumatic mitral (valve) insufficiency | CPT/HCPCS: 74178; Q9967 ==

== ENCOUNTER → 2024-03-26 | Outpatient (CLI) | payer BC ==
[~2024-03-26] MED LIST changes: -ACET-2708 PO; -ASCO500C18 PO; -ASPI-1160 PO; -CLOP75TA15 PO; -CLOP75TA33 MT; -FURO20TA4 PO; -HYDR-4001 MT; -MECO10005 PO; -METO-385 PO
[2024-03-26 10:13] LABS: BASOPHILS % 1.7 % (0.0-2.0); HEMATOCRIT. 41.4 % (36.0-48.0); HEMOGLOBIN. 13.7 g/dL (12.0-16.0); LYMPHOCYTES % 38.5 % (20.0-50.0); MEAN CORPUSCULAR HEMOGLOBIN 29.8 pg (28.0-32.0); MEAN CORPUSCULAR HGB CONC 33.1 g/dL (31.0-37.0); MEAN CORPUSCULAR VOLUME 90.1 fL (81.0-99.0); MEAN PLATELET VOLUME 8.4 fl (7.4-10.4); MONOCYTES % 6.6 % (2.0-8.0); NEUTROPHILS % 49.2 % (40.0-76.0); PLATELET 318 x1000/uL (130-400); RED BLOOD CELL COUNT 4.59 mill/uL (4.2-5.4); RED CELL DISTRIBUTION WIDTH 14.1 % (11.6-14.6); WHITE BLOOD COUNT 5.7 x1000/uL (4.5-11.0)
[2024-03-26 10:26] LABS: CHLORIDE 109 mEq/L (98-107); POTASSIUM 4.6 mEq/L (3.5-5.1); SODIUM 139 mEq/L (136-145)
[2024-03-26 10:28] LABS: CARBON DIOXIDE 27 mEq/L (21-32)
[2024-03-26 10:29] LABS: CALCIUM 9.2 mg/dL (8.7-10.4)
[2024-03-26 10:34] LABS: CREATININE 0.7 mg/dL (0.6-1.0); GLUCOSE 87 mg/dL (70-105); TRIGLYCERIDE 126 mg/dL (0-150)
[2024-03-26 10:35] LABS: ALANINE AMINOTRANSFERASE 13 IU/L (10-49); ALBUMIN 4.1 g/dL (3.2-4.8); ASPARTATE AMINOTRANSFERASE 24 IU/L (<34); LDL CHOLESTEROL 94 mg/dL (5-100); PROTEIN TOTAL 6.8 g/dL (6.0-8.3)
[2024-03-26 10:36] LABS: BILIRUBIN TOTAL 0.5 mg/dL (0.1-1.0); CHOLESTEROL 193 mg/dL (<200); HDL CHOLESTEROL 73 mg/dL (>65); PHOSPHORUS 3.5 mg/dL (2.5-4.9)
[2024-03-26 10:37] LABS: T4 FREE 1.34 ng/dL (0.89-1.76); THYROID STIMULATING HORMONE 1.31 uIU/mL (0.55-4.78)
[2024-03-26 12:05] LABS: UREA NITROGEN BLOOD 15 mg/dL (9-23)
== END | disposition home or self-care (01) ==
LOC: LAB 09:34
PROVIDERS: ATTEND Internal Medicine Endocrinology, Diabetes & Metabolism
DX: E78.00 Pure hypercholesterolemia, unspecified (principal); R73.9 Hyperglycemia, unspecified; E55.9 Vitamin D deficiency, unspecified
CPT/HCPCS: 36415; 80053; 80061; 82306; 82330; 83036; 83735; 84100; 84439; 84443; 85025

== ENCOUNTER 2024-05-08 12:20 | Emergency (ER) | payer BC ==
[~2024-05-08] VITALS: Ht 160 cm; Wt 81.0 kg
[2024-05-08 12:35] VITALS: O2SAT 97
[2024-05-08 13:02] LABS: BASOPHILS % 0.8 % (0.0-2.0); CHLORIDE 107 mEq/L (98-107); EOSINOPHILS % 0.5 % (0.0-5.0); HEMATOCRIT. 42.9 % (36.0-48.0); LYMPHOCYTES % 14.5 % (20.0-50.0); MEAN CORPUSCULAR HEMOGLOBIN 29.1 pg (28.0-32.0); MEAN CORPUSCULAR HGB CONC 32.7 g/dL (31.0-37.0); MEAN PLATELET VOLUME 8.5 fl (7.4-10.4); NEUTROPHILS % 77.2 % (40.0-76.0); PLATELET 251 x1000/uL (130-400); RED BLOOD CELL COUNT 4.82 mill/uL (4.2-5.4); RED CELL DISTRIBUTION WIDTH 13.8 % (11.6-14.6); SODIUM 135 mEq/L (136-145)
[2024-05-08 13:03] LABS: CALCIUM 9.3 mg/dL (8.7-10.4); CARBON DIOXIDE 21 mEq/L (21-32)
[2024-05-08 13:08] LABS: CREATININE 0.7 mg/dL (0.6-1.0); GLUCOSE 115 mg/dL (70-105); UREA NITROGEN BLOOD 11 mg/dL (9-23)
[2024-05-08 13:43] LABS: TROPONIN I HIGH SENSITIVITY < 4 ng/L (3.0-34)
[2024-05-08 14:37] LABS: ALANINE AMINOTRANSFERASE 22 IU/L (10-49); ALBUMIN 4.4 g/dL (3.2-4.8); ASPARTATE AMINOTRANSFERASE 30 IU/L (<34); BILIRUBIN DIRECT 0.2 mg/dL (<=3.0); BILIRUBIN TOTAL 0.6 mg/dL (0.1-1.0); PROTEIN TOTAL 7.3 g/dL (6.0-8.3)
[2024-05-08] MEDS: MAGNESIUM/ALUMINUM HYDROXIDE/SIMETHICONE 30ML UDC PO STA (17:02)
[2024-05-08] MEDS: DICYCLOMINE 10 MG/5 ML ORAL SYR PO STA (17:02)
[2024-05-08] MEDS ORDERED: OMEP40CA20 MT (17:05)
[2024-05-08] MEDS ORDERED: ONDA4TAB50 MT (17:05)
[2024-05-08 17:35] VITALS: BP 128/81; PULSE 84; RESP 18; TEMP 98.7
== END 2024-05-08 18:06 | disposition home or self-care (01) ==
LOC: ER 12:20
DX: M79.10 Myalgia, unspecified site (principal); R53.1 Weakness; R42 Dizziness and giddiness
CPT/HCPCS: 36415; 71045; 74176; 80048; 80076; 83605; 83880; 84484; 85025; 93005; 99285

== ENCOUNTER → 2024-08-22 | Outpatient (CLI) | payer BC ==
[~2024-08-22] MED LIST changes: +OMEP40CA20 MT; +ONDA4TAB50 MT
[2024-08-22 12:42] LABS: BASOPHILS % 1.2 % (0.0-2.0); EOSINOPHILS % 3.6 % (0.0-5.0); HEMATOCRIT. 46.3 % (36.0-48.0); HEMOGLOBIN. 14.8 g/dL (12.0-16.0); LYMPHOCYTES % 40.6 % (20.0-50.0); MEAN CORPUSCULAR HEMOGLOBIN 28.5 pg (28.0-32.0); MEAN CORPUSCULAR HGB CONC 31.9 g/dL (31.0-37.0); MEAN CORPUSCULAR VOLUME 89.5 fL (81.0-99.0); MEAN PLATELET VOLUME 8.4 fl (7.4-10.4); MONOCYTES % 6.7 % (2.0-8.0); NEUTROPHILS % 47.9 % (40.0-76.0); PLATELET 303 x1000/uL (130-400); RED BLOOD CELL COUNT 5.18 mill/uL (4.2-5.4); RED CELL DISTRIBUTION WIDTH 14.3 % (11.6-14.6); WHITE BLOOD COUNT 6.4 x1000/uL (4.5-11.0)
[2024-08-22 13:08] LABS: CARBON DIOXIDE 28 mEq/L (21-32); CHLORIDE 107 mEq/L (98-107); POTASSIUM 4.6 mEq/L (3.5-5.1); SODIUM 142 mEq/L (136-145)
[2024-08-22 13:09] LABS: CALCIUM 9.7 mg/dL (8.7-10.4)
[2024-08-22 13:13] LABS: CREATININE 0.8 mg/dL (0.6-1.0); GLUCOSE 84 mg/dL (70-105)
[2024-08-22 13:14] LABS: TRIGLYCERIDE 134 mg/dL (0-150); UREA NITROGEN BLOOD 10 mg/dL (9-23)
[2024-08-22 13:15] LABS: ALANINE AMINOTRANSFERASE 14 IU/L (10-49); ALBUMIN 4.3 g/dL (3.2-4.8); ASPARTATE AMINOTRANSFERASE 23 IU/L (<34); LDL CHOLESTEROL 68 mg/dL (5-100)
[2024-08-22 13:16] LABS: BILIRUBIN TOTAL 0.6 mg/dL (0.1-1.0); CHOLESTEROL 152 mg/dL (<200); HDL CHOLESTEROL 66 mg/dL (>65); PROTEIN TOTAL 7.3 g/dL (6.0-8.3)
[2024-08-22 13:18] LABS: VITAMIN B12 SERUM 1369 pg/mL (211-911)
[2024-08-22 13:20] LABS: T4 FREE 1.57 ng/dL (0.89-1.76)
== END | disposition home or self-care (01) ==
LOC: LAB 12:00
PROVIDERS: ATTEND Specialist
DX: I11.9 Hypertensive heart disease without heart failure (principal); E78.2 Mixed hyperlipidemia
CPT/HCPCS: 36415; 80053; 80061; 82306; 82607; 83036; 83735; 84439; 84481; 85025

== ENCOUNTER → 2025-02-11 | Outpatient (CLI) | payer BC ==
[2025-02-11 10:42] LABS: BASOPHILS % 2.5 % (0.0-2.0); EOSINOPHILS % 4.4 % (0.0-5.0); HEMATOCRIT. 42.7 % (36.0-48.0); HEMOGLOBIN. 13.8 g/dL (12.0-16.0); LYMPHOCYTES % 35.9 % (20.0-50.0); MEAN CORPUSCULAR HEMOGLOBIN 28.5 pg (28.0-32.0); MEAN CORPUSCULAR HGB CONC 32.4 g/dL (31.0-37.0); MEAN CORPUSCULAR VOLUME 88.1 fL (81.0-99.0); MEAN PLATELET VOLUME 8.2 fl (7.4-10.4); MONOCYTES % 5.7 % (2.0-8.0); NEUTROPHILS % 51.5 % (40.0-76.0); PLATELET 336 x1000/uL (130-400); RED BLOOD CELL COUNT 4.85 mill/uL (4.2-5.4); RED CELL DISTRIBUTION WIDTH 13.7 % (11.6-14.6); WHITE BLOOD COUNT 5.9 x1000/uL (4.5-11.0)
[2025-02-11 11:15] LABS: CARBON DIOXIDE 26 mEq/L (21-32); CHLORIDE 109 mEq/L (98-107); POTASSIUM 4.4 mEq/L (3.5-5.1); SODIUM 140 mEq/L (136-145)
[2025-02-11 11:16] LABS: CALCIUM 9.7 mg/dL (8.7-10.4)
[2025-02-11 11:20] LABS: CREATININE 0.7 mg/dL (0.6-1.0); GLUCOSE 92 mg/dL (70-105)
[2025-02-11 11:21] LABS: LDL CHOLESTEROL 89 mg/dL (5-100); TRIGLYCERIDE 82 mg/dL (0-150); UREA NITROGEN BLOOD 12 mg/dL (9-23)
[2025-02-11 11:22] LABS: ALANINE AMINOTRANSFERASE 12 IU/L (10-49); ALBUMIN 4.1 g/dL (3.2-4.8); ASPARTATE AMINOTRANSFERASE 19 IU/L (<34); CHOLESTEROL 189 mg/dL (<200)
[2025-02-11 11:23] LABS: BILIRUBIN TOTAL 0.5 mg/dL (0.1-1.0); HDL CHOLESTEROL 77 mg/dL (>65); PROTEIN TOTAL 7.3 g/dL (6.0-8.3); T4 FREE 1.21 ng/dL (0.89-1.76)
== END | disposition home or self-care (01) ==
LOC: CARD 08:28 → EDSTATUS 09:06
PROVIDERS: ATTEND Specialist
DX: E11.9 Type 2 diabetes mellitus without complications (principal); E78.2 Mixed hyperlipidemia; E55.9 Vitamin D deficiency, unspecified; D64.9 Anemia, unspecified; Z95.1 Presence of aortocoronary bypass graft
CPT/HCPCS: 36415; 80053; 80061; 82306; 83036; 84439; 84481; 85025; 93350

== ENCOUNTER → 2025-04-21 | Outpatient (CLI) | payer BC | END | disposition home or self-care (01) | LOC: MAMMO 07:15 | PROVIDERS: ATTEND Obstetrics & Gynecology Obstetrics | DX: Z12.31 Encounter for screening mammogram for malignant neoplasm of breast (principal); R92.323 Mammographic fibroglandular density, bilateral breasts | CPT/HCPCS: 77063; 77067 ==

== ENCOUNTER → 2025-08-20 | Outpatient (CLI) | payer BC ==
[2025-08-20 11:23] LABS: BASOPHILS % 1.4 % (0.0-2.0); EOSINOPHILS % 3.3 % (0.0-5.0); HEMATOCRIT. 43.4 % (36.0-48.0); HEMOGLOBIN. 14.1 g/dL (12.0-16.0); LYMPHOCYTES % 34.4 % (20.0-50.0); MEAN PLATELET VOLUME 8.1 fl (7.4-10.4); MONOCYTES % 7.0 % (2.0-8.0); NEUTROPHILS % 53.9 % (40.0-76.0); PLATELET 282 x1000/uL (130-400); RED BLOOD CELL COUNT 4.90 mill/uL (4.2-5.4); RED CELL DISTRIBUTION WIDTH 14.1 % (11.6-14.6)
[2025-08-20 11:40] LABS: CREATININE 0.7 mg/dL (0.6-1.0); TRIGLYCERIDE 84 mg/dL (0-150); UREA NITROGEN BLOOD 11 mg/dL (9-23)
[2025-08-20 11:41] LABS: LDL CHOLESTEROL 96 mg/dL (5-100)
[2025-08-20 11:42] LABS: ASPARTATE AMINOTRANSFERASE 16 IU/L (<34); BILIRUBIN TOTAL 0.8 mg/dL (0.1-1.0); PROTEIN TOTAL 7.2 g/dL (6.0-8.3)
[2025-08-20 11:43] LABS: T4 FREE 1.44 ng/dL (0.89-1.76)
== END | disposition home or self-care (01) ==
LOC: LAB 10:22
PROVIDERS: ATTEND Specialist
DX: I25.10 Atherosclerotic heart disease of native coronary artery without angina pectoris (principal); R06.02 Shortness of breath; R79.89 Other specified abnormal findings of blood chemistry; R53.83 Other fatigue
CPT/HCPCS: 36415; 80053; 80061; 82306; 83036; 83735; 84439; 84443; 84481; 85025

== ENCOUNTER → 2025-09-10 | Day surgery (SDC) | payer BC ==
[~2025-09-10] MED LIST changes: +FURO40TA5 PO
== END | disposition home or self-care (01) ==
LOC: CARD 07:41
PROVIDERS: ATTEND Specialist
DX: R06.02 Shortness of breath (principal); I25.10 Atherosclerotic heart disease of native coronary artery without angina pectoris; Z88.8 Allergy status to other drugs, medicaments and biological substances
CPT/HCPCS: 71046; 93017